=== PATIENT | female | born 1975 | race Caucasian/White ===

== ENCOUNTER 2016-03-13 12:10 | Emergency (ER) | payer BC, OTHER ==
[2016-03-13] MEDS ORDERED: BABY ASPIRIN 81 MG CHEW PO ONE (12:46)
[2016-03-13] MEDS ORDERED: BABY ASPIRIN 81 MG CHEW ONE (12:50)
--- NOTE | 2016-03-13 12:54 | ERPHSYRPT ---
- History of Present Illness Time Seen by Provider: 03/13/16 12:49 Exam Limitations: no limitations Patient Subjective Stated Complaint: PT STATES TODAY WHIILE AT WORK SHE BEGAN HAVING CHEST PAIN. PT STATES FOR THE PAST FEW DAYS SHE HAS FELT "SHAKY" AND HAS HAD PERIODS OF DIZZINESS. Triage Nursing Assessment: PT PINK, WARM, DRY. RADIAL PULSES STRONG. PT AMBULATED INTO ER WITHOUT DIFFICULTY. Physician History: This is a 40-year-old white female with history of COPD, emphysema, She arrives with complaint of pain in her anterior chest initially starting out as a stabbing pain and then becoming a pressure like pain which began around 10: 00 associated with shortness of breath she denies nausea no vomiting. She does state that 2 days ago she passed out 2 times. She states that she did not seek medical attention after doing this. Patient states her pain now as a 4 out of 10 it is much better than before she states it was 8 out of 10. She denies any history of cardiac problems past medical history includes COPD emphysema, tubal ligation, patient has had a ganglion cyst removed. Social history is positive for marijuana use occasional and smokes. . Timing/Duration: today (10:00 today) Activities at Onset: other (work) Quality: other (initially sharp stabbing progressed to pressure) Location: substernal Chest Pain Radiation: no radiation Severity of Pain-Max: moderate Severity of Pain-Current: mild Modifying Factors: Improves With: nothing Associated Symptoms: syncope (syncope 2 days ago 2), dizziness, No nausea, No vomiting, No palpitations, No heartburn, No abdominal pain, No shortness of breath, No cough, No hurts to breathe, No diaphoresis, No fever, No fatigue, No weakness, No swelling/lump in chest, No rash, No headache Prior Chest Pain/Cardiac Workup: no prior chest pain Nitro Today/Relief: no nitro taken today Aspirin Treatment Today: 81 mg x 4, provided by ED Allergies/Adverse Reactions: No Known Drug Allergies Allergy (Unverified 03/13/16 12:23) Home Medications: Albuterol 2.5 mg/3 ml Neb [Proventil 2.5 mg/3 ml Neb] 2.5 mg IH Q6HPRN PRN 03/13/16 [History] Hx Tetanus, Diphtheria Vaccination/Date Given: Yes (UP TO DATE) Hx Influenza Vaccination/Date Given: Yes Hx Pneumococcal Vaccination/Date Given: No Immunizations Up to Date: Yes - Review of Systems Constitutional: No Fever, No Chills Eyes: No Symptoms Ears, Nose, & Throat: No Symptoms Respiratory: Dyspnea, No Cough, No Cyanosis, No Dyspnea on Exertion (GRIFFIN), No Wheezing Cardiac: Chest Pain, Syncope (syncope 2 days ago 2), No Edema, No Palpitations Abdominal/Gastrointestinal: No Abdominal Pain, No Nausea, No Vomiting, No Diarrhea Genitourinary Symptoms: No Dysuria Musculoskeletal: No Back Pain, No Neck Pain Skin: No Rash Neurological: Dizziness, Other (syncope 2 days ago 2), No Focal Weakness, No Sensory Changes Psychological: No Symptoms Endocrine: No Symptoms - Past Medical History Pertinent Past Medical History: Yes Respiratory History: COPD - Past Surgical History Past Surgical History: Yes Female Surgical History: Tubal Ligation, Other Other Surgical History: LYMPH NODE BIOPSY. GANGLION CYST REMOVAL. - Social History Smoking Status: Current every day smoker How long have you smoked: 25 Exposure to second hand smoke: Yes Drug Use: marijuana Patient Lives Alone: No - Female History Hx Last Menstrual Period: END JAN 2016 - Nursing Vital Signs Temperature: 98.4 F Temperature Source: Oral Pulse Rate: 99 Respiratory Rate: 18 Blood Pressure: 125/83 Pain Intensity: 4 - Physical Exam General Appearance: no apparent distress, alert Eye Exam: PERRL/EOMI, eyes nml inspection Ears, Nose, Throat Exam: normal ENT inspection, moist mucous membranes Neck Exam: normal inspection, non-tender, supple, full range of motion Respiratory Exam: normal breath sounds, lungs clear, No respiratory distress Cardiovascular Exam: regular rate/rhythm, normal heart sounds Gastrointestinal/Abdomen Exam: soft, No tenderness, No mass Back Exam: normal inspection, No CVA tenderness, No vertebral tenderness Extremity Exam: normal inspection, normal range of motion Neurologic Exam: alert, oriented x 3, cooperative, normal mood/affect, sensation nml, No motor deficits SpO2 Interpretation: normal (100%) SpO2: 100 Oxygen Delivery: Room Air - Course Nursing assessment & vital signs reviewed: Yes EKG Interpreted by Me: RATE (95 bpm), NORMAL AXIS, Other (EKG sinus rhythm, 95 bpm, normal axis, no acute ST or T wave changes noted) - Radiology Exams Chest X-ray Interpretation: Discussed w/ radiologist, Other (stable non acute hyperinflted chest) Ordered Tests: Active Orders 24 hr Category Date Time Status Log Chain Worker STAT Care 03/13/16 12:24 Active EKG-ER Only STAT Care 03/13/16 12:24 Active EKG-ER Only STAT Care 03/13/16 15:31 Active IV Insertion STAT Care 03/13/16 12:24 Active Orthostatic Vital Signs STAT Care 03/13/16 12:28 Active Pulse Oximetry (ED) STAT Care 03/13/16 12:24 Active Cardiac Diet Diet 03/13/16 Dinner Active CHEST 1 VIEW (PORTABLE) Stat Exams 03/13/16 12:46 Completed CBC W DIFF Stat Lab 03/13/16 12:30 Completed CMP Stat Lab 03/13/16 12:30 Completed D-DIMER QUANTITATION Stat Lab 03/13/16 12:30 Completed HCG QUALITATIVE,SERUM Stat Lab 03/13/16 12:30 Completed Manual Differential NC Stat Lab 03/13/16 12:30 Completed TROPONIN Q3H Lab 03/13/16 13:20 Completed TROPONIN Q3H Lab 03/13/16 15:46 Completed TROPONIN Q3H Lab 03/13/16 19:00 Ordered TROPONIN Q3H Lab 03/13/16 22:00 Ordered TROPONIN Q3H Lab 03/14/16 01:00 Ordered Urine Triage Profile Stat Lab 03/13/16 12:30 Completed Medication Summary Discontinued Medications Generic Name Dose Route Start Last Admin Trade Name Freq PRN Reason Stop Dose Admin Aspirin 324 mg 03/13/16 12:46 03/13/16 12:55 Baby Aspirin 81 Mg Chew PO 03/13/16 12:47 324 mg STAT ONE Administration Aspirin Confirm 03/13/16 12:50 Baby Aspirin 81 Mg Chew Administered 03/13/16 12:51 Dose 324 mg .ROUTE .STK-MED ONE Lab/Rad Data: Laboratory Result Diagrams 03/13/16 12:30 03/13/16 12:30 Laboratory Results 03/13/16 03/13/16 03/13/16 Range/Units 15:46 13:20 12:30 WBC (4.0-10.5) K/mm3 RBC (4.1-5.4) M/mm3 Hgb (12.0-16.0) gm/dl Hct (35-47) % MCV (78-100) fl MCH (26-32) pg MCHC (32-36) g/dl RDW (11.5-14.0) % Plt Count (150-450) K/mm3 MPV (6-9.5) fl Segmented Neutrophils (36.0-66.0) % Band Neutrophils (0.0-2.0) % Lymphocytes (Manual) (24-44) % Monocytes (Manual) (0.0-12.0) % Platelet Estimate (NORMAL) D-Dimer (0.00-0.49) mg/L Sodium (136-145) mEq/L Potassium (3.5-5.1) mEq/L Chloride (98-107) mEq/L Carbon Dioxide (21-32) mEq/L Anion Gap (5-15) MEQ/L BUN (9-20) mg/dL Creatinine (0.55-1.30) mg/dl Estimated GFR ML/MIN Glucose (70-110) MG/DL Calcium (8.5-10.1) mg/dL Total Bilirubin (0.2-1.0) mg/dL AST (15-37) U/L ALT (12-78) U/L Alkaline Phosphatase (46-116) U/L Troponin I < 0.017 < 0.017 (0.000-0.056) ng/ml Serum Total Protein (6.4-8.2) gm/dL Albumin (3.4-5.0) g/dL Serum , Qual NEGATIVE (Negative) Urine Opiates Level (NEGATIVE) Ur Methadone (NEGATIVE) Urine Barbiturates (NEGATIVE) Ur Phencyclidine (PCP) (NEGATIVE) Urine Amphetamine (NEGATIVE) U Benzodiazepine Level (NEGATIVE) Urine Cocaine (NEGATIVE) Urine Marijuana (THC) (NEGATIVE) 03/13/16 03/13/16 03/13/16 Range/Units 12:30 12:30 12:30 WBC (4.0-10.5) K/mm3 RBC (4.1-5.4) M/mm3 Hgb (12.0-16.0) gm/dl Hct (35-47) % MCV (78-100) fl MCH (26-32) pg MCHC (32-36) g/dl RDW (11.5-14.0) % Plt Count (150-450) K/mm3 MPV (6-9.5) fl Segmented Neutrophils (36.0-66.0) % Band Neutrophils (0.0-2.0) % Lymphocytes (Manual) (24-44) % Monocytes (Manual) (0.0-12.0) % Platelet Estimate (NORMAL) D-Dimer < 0.20 (0.00-0.49) mg/L Sodium 142 (136-145) mEq/L Potassium 3.6 (3.5-5.1) mEq/L Chloride 105 (98-107) mEq/L Carbon Dioxide 25.8 (21-32) mEq/L Anion Gap 15.2 H (5-15) MEQ/L BUN 6 L (9-20) mg/dL Creatinine 0.86 (0.55-1.30) mg/dl Estimated GFR > 60 ML/MIN Glucose 94 (70-110) MG/DL Calcium 8.4 L (8.5-10.1) mg/dL Total Bilirubin 0.2 (0.2-1.0) mg/dL AST 16 (15-37) U/L ALT 14 (12-78) U/L Alkaline Phosphatase 48 (46-116) U/L Troponin I (0.000-0.056) ng/ml Serum Total Protein 7.0 (6.4-8.2) gm/dL Albumin 3.9 (3.4-5.0) g/dL Serum , Qual (Negative) Urine Opiates Level NEG. (NEGATIVE) Ur Methadone NEG. (NEGATIVE) Urine Barbiturates NEG. (NEGATIVE) Ur Phencyclidine (PCP) NEG. (NEGATIVE) Urine Amphetamine NEG. (NEGATIVE) U Benzodiazepine Level NEG. (NEGATIVE) Urine Cocaine NEG. (NEGATIVE) Urine Marijuana (THC) POS. (NEGATIVE) 03/13/16 Range/Units 12:30 WBC 9.6 (4.0-10.5) K/mm3 RBC 4.37 (4.1-5.4) M/mm3 Hgb 13.8 (12.0-16.0) gm/dl Hct 41.9 (35-47) % MCV 95.9 (78-100) fl MCH 31.6 (26-32) pg MCHC 32.9 (32-36) g/dl RDW 13.0 (11.5-14.0) % Plt Count 330 (150-450) K/mm3 MPV 11.3 H (6-9.5) fl Segmented Neutrophils 76 H (36.0-66.0) % Band Neutrophils 1 (0.0-2.0) % Lymphocytes (Manual) 18 L (24-44) % Monocytes (Manual) 5 (0.0-12.0) % Platelet Estimate NORMAL (NORMAL) D-Dimer (0.00-0.49) mg/L Sodium (136-145) mEq/L Potassium (3.5-5.1) mEq/L Chloride (98-107) mEq/L Carbon Dioxide (21-32) mEq/L Anion Gap (5-15) MEQ/L BUN (9-20) mg/dL Creatinine (0.55-1.30) mg/dl Estimated GFR ML/MIN Glucose (70-110) MG/DL Calcium (8.5-10.1) mg/dL Total Bilirubin (0.2-1.0) mg/dL AST (15-37) U/L ALT (12-78) U/L Alkaline Phosphatase (46-116) U/L Troponin I (0.000-0.056) ng/ml Serum Total Protein (6.4-8.2) gm/dL Albumin (3.4-5.0) g/dL Serum , Qual (Negative) Urine Opiates Level (NEGATIVE) Ur Methadone (NEGATIVE) Urine Barbiturates (NEGATIVE) Ur Phencyclidine (PCP) (NEGATIVE) Urine Amphetamine (NEGATIVE) U Benzodiazepine Level (NEGATIVE) Urine Cocaine (NEGATIVE) Urine Marijuana (THC) (NEGATIVE) - Progress Progress: improved Air Movement: fair Progress Note: 03/13/16 15:40 Patient in no acute distress. Initial troponin normal. Awaiting repeat troponin. Repeat EKG sinus rhythm 64 bpm normal axis no acute ST or T wave changes noted. 03/13/16 16:27 Patient pain free. Repeat troponin within normal limits. EKG repeat normal. Will discharge patient. Patient follow-up with her family doctor she states she plans to follow-up with Dr. Redd. 03/13/16 16:30 After the first troponin was available I had offered either to talk to physician oncology radiation physician for possible admission for rule out. Versus repeat cardiac enzymes. Patient did not want to be admitted and chose to stay for repeat cardiac enzymes. She did not have any problems in between enzymes she is pain free repeat enzymes and EKGs are normal. - Departure Time of Disposition: 16:28 Departure Disposition: Home Clinical Impression: Chest pain Qualifiers: Chest pain type: unspecified Qualified Code(s): R07.9 - Chest pain, unspecified Condition: Fair Critical Care Time: No Referrals: DOCTOR,NO FAMILY [Primary Care Provider] - Additional Instructions: Return home rest, plenty of fluids. Follow-up with your family doctor, call and make an appointment. Return for acute distress or for severe symptoms.
[2016-03-13 13:01] LABS: Mean Cell Volume 95.9 fl (78-100); Mean Corpuscular Hemoglobin 31.6 pg (26-32); Mean Platelet Volume 11.3 fl (6-9.5); Platelet Count 330 K/mm3 (150-450); Red Blood Count 4.37 M/mm3 (4.1-5.4); White Blood Count 9.6 K/mm3 (4.0-10.5)
--- NOTE | 2016-03-13 13:11 | XRAY ---
Indication: Chest pain Comparison: July 15, 2013 Portable chest remains hyperinflated and clear. Heart is not enlarged. Bony thorax intact. No new/acute findings. Impression: Stable nonacute hyperinflated chest.
[2016-03-13 13:26] LABS: ALBUMIN 3.9 g/dL (3.4-5.0); ALKALINE PHOSPHATASE 48 U/L (46-116); ANION GAP 15.2 MEQ/L (5-15); BILIRUBIN,TOTAL 0.2 mg/dL (0.2-1.0); BLOOD UREA NITROGEN 6 mg/dL (9-20); CHLORIDE 105 mEq/L (98-107); Carbon Dioxide 25.8 mEq/L (21-32); Glucose 94 MG/DL (70-110); Potassium 3.6 mEq/L (3.5-5.1); SGOT/AST 16 U/L (15-37); SGPT/ALT 14 U/L (12-78); SODIUM 142 mEq/L (136-145)
[2016-03-13 13:40] LABS: BAND 1 % (0.0-2.0); Total Cells Counted 100
[2016-03-13 13:42] LABS: Platelet Estimate NORMAL (NORMAL)
[2016-03-13 16:43] VITALS: BP 110/62; PULSE 66; O2SAT 97
== END 2016-03-13 16:43 | disposition home or self-care (01) ==
LOC: ED 12:10
DX: R07.89 Other chest pain (principal); J44.9 Chronic obstructive pulmonary disease, unspecified; J43.9 Emphysema, unspecified; R55 Syncope and collapse; R42 Dizziness and giddiness
CPT/HCPCS: 36000; 36415; 71010; 80053; 80307; 84484; 84703; 85025; 85379; 93005; 93041; 96360; 99284

== ENCOUNTER 2017-05-27 23:00 | Observation (INO) | payer OTHER ==
[2017-05-27] MEDS ORDERED: Sodium Chloride 0.9% 1000 ML 1,000 ML IV SCH (23:15)
[2017-05-27] MEDS ORDERED: Sodium Chloride 0.9% 1000 ML 1,000 ML ONE (23:19)
[2017-05-27 23:20] LABS: BASOPHIL % 0.6 % (0.0-0.4); Basophil (Absolute #) 0.05 (0-0.4); Eosinophil % 2.8 % (0.00-5.0); Eosinophil (Absolute #) 0.24 (0-0.5); Granulocyte Absolute (ANC) 4.77 (1.4-6.9); Hematocrit 41.4 % (35-47); Hemoglobin 13.7 gm/dl (12.0-16.0); Lymphocytes % 34.1 % (24.0-44.0); Mean Corpuscular Hemoglobin 31.4 pg (26-32); Mean Corpuscular Hgb Concent. 33.1 g/dl (32-36); Mean Platelet Volume 10.6 fl (6-9.5); Monocyte (Absolute #) 0.55 (0.0-1.3); Monocytes % 6.5 % (0.0-12.0); Platelet Count 310 K/mm3 (150-450); Red Blood Count 4.36 M/mm3 (4.1-5.4); Red Cell Distribution Width 12.8 % (11.5-14.0); White Blood Count 8.5 K/mm3 (4.0-10.5)
[2017-05-27 23:27] LABS: A-aADO2 40; ABG HEMOGLOBIN 13.5; ABG POTASSIUM 3.9 (3.5-5.1); ARTERIAL BLD GAS O2 SATURATION 98.6 % (95-100); ARTERIAL BLOOD GAS BASE EXCESS -1.1 (-2.0-2.0); ARTERIAL BLOOD GAS FIO2 28 %; ARTERIAL BLOOD GAS PCO2 53 mmHg (35-45); ARTERIAL BLOOD GAS PO2 93 mmHg (75-100); HCO3- 26.1 (22-28); HGB O2 SAT 90.7 g/dF (94-100)
[2017-05-27 23:28] LABS: ABG SITE RIGHT RADIAL; ALLEN TEST OK? YES
[2017-05-27] MEDS ORDERED: PROVENTIL 2.5 MG/3 ML NEB IH ONE ×2 (23:36→23:42)
--- NOTE | 2017-05-27 23:36 | ERPHSYRPT ---
- History of Present Illness Time Seen by Provider: 05/27/17 23:05 Source: family () Exam Limitations: no limitations Physician History: REPORTEDLY PT AND HER WENT OUT FOR DRINKS, CAME HOME AND WENT TO BED ~ 2200. PT'S STATES HE GOT UP AND FOUND PT ON FLOOR AND NOTICED PILLS WERE GONE FROM HER XANAX AND LEXAPRO BOTTLES. PT IS DROUSY AND WILL NOT ANSWER MY QUESTIONS. Allergies/Adverse Reactions: No Known Drug Allergies Allergy (Unverified 03/13/16 12:23) Home Medications: Albuterol 2.5 mg/3 ml Neb [Proventil 2.5 mg/3 ml Neb] 2.5 mg IH Q6HPRN PRN 03/13/16 [History] Hx Tetanus, Diphtheria Vaccination/Date Given: Yes (UP TO DATE) Hx Influenza Vaccination/Date Given: Yes Hx Pneumococcal Vaccination/Date Given: No - Review of Systems All Other Systems: Unable due to condition (PT WILL NOT ANSWER MY QUESTIONS.) - Past Medical History Pertinent Past Medical History: Yes Respiratory History: COPD - Past Surgical History Past Surgical History: Yes Female Surgical History: Tubal Ligation, Other Other Surgical History: LYMPH NODE BIOPSY. GANGLION CYST REMOVAL. - Social History Smoking Status: Current every day smoker How long have you smoked: 25 Exposure to second hand smoke: Yes Drug Use: marijuana Patient Lives Alone: No - Female History Hx Now: (UNKNOWN) - Nursing Vital Signs Nursing Vital Signs: Initial Vital Signs Temperature 97.7 F 05/27/17 23:02 Pulse Rate 83 05/27/17 23:02 Blood Pressure 101/65 05/27/17 23:02 O2 Sat by Pulse Oximetry 100 05/27/17 23:02 Pain Scale Pain Intensity 0 - Physical Exam General Appearance: lethargy Eye Exam: PERRL/EOMI Ears, Nose, Throat Exam: TMs normal, moist mucous membranes, pharyngeal erythema (MILD) Neck Exam: normal inspection Respiratory Exam: wheezing (MINIMAL) Cardiovascular Exam: normal heart sounds Gastrointestinal/Abdomen Exam: soft, other (B.S. MODERATELY HYPERACTIVE AND NORMOTONIC), No distention Back Exam: normal inspection Extremity Exam: normal inspection, No pedal edema Neurologic Exam: other (LETHARGIC) SpO2 Interpretation: normal SpO2: 98 Oxygen Delivery: Room Air - Course Nursing assessment & vital signs reviewed: Yes EKG Interpreted by Me: RATE (82), Sinus Rhythm, NORMAL AXIS, NORMAL INTERVALS - Radiology Exams Chest X-ray Interpretation: Interpreted by me, No Pneumonia - CT Exams Head CT Interpretation: Tele-radiologist Report (NEGATIVE FOR INTRACRANIAL HEMORRHAGE OR MASS EFFECT.) Ordered Tests: Active Orders 24 hr Category Date Time Status Whiskey Regauger STAT Care 05/27/17 23:11 Active Cath for Specimen-Straight STAT Care 05/27/17 23:52 Active EKG-ER Only STAT Care 05/27/17 23:11 Active IV Insertion STAT Care 05/27/17 23:11 Active IV Insertion-2nd Peripheral STAT Care 05/27/17 23:16 Active Oxygen-ED Only NASAL CANNULA 2 lpm Care 05/27/17 23:11 Active Pulse Oximetry (ED) STAT Care 05/27/17 23:11 Active CHEST 1 VIEW (PORTABLE) Stat Exams 05/27/17 23:13 Taken HEAD WITHOUT CONTRAST [CT] Stat Exams 05/27/17 23:14 Taken ACETAMINOPHEN Stat Lab 05/27/17 23:15 Completed AMYLASE Stat Lab 05/27/17 23:15 Completed ARTERIAL BLOOD GASES Stat Lab 05/27/17 23:20 Completed ARTERIAL BLOOD GASES Stat Lab 05/28/17 01:13 Completed CBC W DIFF Stat Lab 05/27/17 23:15 Completed CMP Stat Lab 05/27/17 23:15 Completed CULTURE, THROAT Stat Lab 05/27/17 23:45 Received ETHYL ALCOHOL Stat Lab 05/27/17 23:15 Completed HCG QUALITATIVE,SERUM Stat Lab 05/27/17 23:15 Completed LIPASE Stat Lab 05/27/17 23:15 Completed MAGNESIUM Stat Lab 05/27/17 23:15 Completed SALICYLATE Stat Lab 05/27/17 23:15 Completed STREP SCREEN-BETA A Stat Lab 05/27/17 23:45 Completed TROPONIN Q3H Lab 05/27/17 23:15 Completed TROPONIN Q3H Lab 05/28/17 02:15 Ordered TROPONIN Q3H Lab 05/28/17 05:15 Ordered TROPONIN Q3H Lab 05/28/17 08:15 Ordered TROPONIN Q3H Lab 05/28/17 11:15 Ordered UA W/RFX UR CULTURE Stat Lab 05/27/17 23:45 Completed Urine Triage Profile Stat Lab 05/27/17 23:45 Completed BiPap/CPAP Assessment STAT RT 05/28/17 00:06 Active Respiratory Nebulizer STAT RT 05/27/17 23:37 Active Medication Summary Generic Name Dose Route Start Last Admin Trade Name Bryantq PRN Reason Stop Dose Admin Sodium Chloride 1,000 mls @ 100 mls/hr 05/27/17 23:15 05/27/17 23:20 Sodium Chloride 0.9% 1000 Ml IV 06/26/17 23:14 100 mls/hr .Q10H SOPHIA Administration Discontinued Medications Generic Name Dose Route Start Last Admin Trade Name Fabrizio PRN Reason Stop Dose Admin Albuterol Sulfate 2.5 mg 05/27/17 23:36 05/27/17 23:40 Proventil 2.5 Mg/3 Ml Neb IH 05/27/17 23:37 2.5 mg STAT ONE Administration Albuterol Sulfate Confirm 05/27/17 23:42 Proventil 2.5 Mg/3 Ml Neb Administered 05/27/17 23:43 Dose 2.5 mg IH .STK-MED ONE Flumazenil 0.2 mg 05/27/17 23:50 05/27/17 23:54 Romazicon 0.5 Mg/5 Ml Injection IV 05/27/17 23:51 0.2 mg STAT ONE Administration Flumazenil Confirm 05/27/17 23:53 Romazicon 0.5 Mg/5 Ml Injection Administered 05/27/17 23:54 Dose 0.1 mg .ROUTE .STK-MED ONE Lab/Rad Data: Laboratory Result Diagrams 05/27/17 23:15 05/27/17 23:15 Laboratory Results 05/28/17 05/27/17 05/27/17 Range/Units 01:13 Unknown 23:45 WBC (4.0-10.5) K/mm3 RBC (4.1-5.4) M/mm3 Hgb (12.0-16.0) gm/dl Hct (35-47) % MCV (78-100) fl MCH (26-32) pg MCHC (32-36) g/dl RDW (11.5-14.0) % Plt Count (150-450) K/mm3 MPV (6-9.5) fl Gran % (36.0-66.0) % Eos # (Auto) (0-0.5) Absolute Lymphs (auto) (1.0-4.6) Absolute Monos (auto) (0.0-1.3) Lymphocytes % (24.0-44.0) % Monocytes % (0.0-12.0) % Eosinophils % (0.00-5.0) % Basophils % (0.0-0.4) % Absolute Granulocytes (1.4-6.9) Basophils # (0-0.4) Puncture Site RIGHT RADIAL pCO2 52 H (35-45) mmHg pO2 61 L (75-100) mmHg Base Excess -1.4 (-2.0-2.0) O2 Saturation 87.0 L (94-100) g/dF ABG pH 7.30 L (7.35-7.45) ABG HCO3 25.6 (22-28) ABG O2 Sat (Measured) 92.8 L (95-100) % Michael Test YES A-a Gradient 74 a/A Ratio 0.45 Hemoglobin 12.2 Carboxyhemoglobin 5.6 (0.0-6.9) % THgb Methemoglobin 0.7 L (1.4-1.5) % Temperature 37.0 C POC O2 Flow Rate 28 % Sodium (137-145) mmol/L Potassium 4.1 (3.5-5.1) mmol/L Chloride (98-107) mmol/L Carbon Dioxide (22-30) mmol/L Anion Gap (5-15) MEQ/L BUN (7-17) mg/dL Creatinine (0.52-1.04) mg/dL Estimated GFR ML/MIN Glucose (74-106) mg/dL Calcium (8.4-10.2) mg/dL Magnesium (1.6-2.3) mg/dL Total Bilirubin (0.2-1.3) mg/dL AST (14-36) U/L ALT (0-35) U/L Alkaline Phosphatase (38-126) U/L Troponin I (0.000-0.034) ng/mL Serum Total Protein (6.3-8.2) g/dL Albumin (3.5-5.0) g/dL Amylase (30-110) U/L Lipase (23-300) U/L Serum , Qual (Negative) Ur Collection Type Urine Color (YELLOW) Urine Appearance (CLEAR) Urine pH (5-6) Ur Specific Mallie (1.005-1.025) Urine Protein (Negative) Urine Ketones (NEGATIVE) Urine Blood (0-5) Kendall/ul Urine Nitrite (NEGATIVE) Urine Bilirubin (NEGATIVE) Urine Urobilinogen (0-1) mg/dL Ur Leukocyte Esterase (NEGATIVE) Urine Culture Reflexed (NO) Urine Glucose (NEGATIVE) mg/dL Salicylates (2-20) mg/dL Urine Opiates Level (NEGATIVE) Ur Methadone (NEGATIVE) Acetaminophen (10-30) ug/ml Urine Barbiturates (NEGATIVE) Ur Phencyclidine (PCP) (NEGATIVE) Urine Amphetamine (NEGATIVE) U Benzodiazepine Level (NEGATIVE) Urine Cocaine (NEGATIVE) Urine Marijuana (THC) (NEGATIVE) Ethyl Alcohol (0-9) mg/dL Monoscreen NEGATIVE (Negative) Influenza Type A Ag NEGATIVE (NEGATIVE) Influenza Type B Ag NEGATIVE (NEGATIVE) RSV (PCR) NEGATIVE (Negative) Streptococcus Screen (Negative) Specimen Received 05/27/17 05/27/17 05/27/17 Range/Units 23:45 23:45 23:45 WBC (4.0-10.5) K/mm3 RBC (4.1-5.4) M/mm3 Hgb (12.0-16.0) gm/dl Hct (35-47) % MCV (78-100) fl MCH (26-32) pg MCHC (32-36) g/dl RDW (11.5-14.0) % Plt Count (150-450) K/mm3 MPV (6-9.5) fl Gran % (36.0-66.0) % Eos # (Auto) (0-0.5) Absolute Lymphs (auto) (1.0-4.6) Absolute Monos (auto) (0.0-1.3) Lymphocytes % (24.0-44.0) % Monocytes % (0.0-12.0) % Eosinophils % (0.00-5.0) % Basophils % (0.0-0.4) % Absolute Granulocytes (1.4-6.9) Basophils # (0-0.4) Puncture Site pCO2 (35-45) mmHg pO2 (75-100) mmHg Base Excess (-2.0-2.0) O2 Saturation (94-100) g/dF ABG pH (7.35-7.45) ABG HCO3 (22-28) ABG O2 Sat (Measured) (95-100) % Michael Test A-a Gradient a/A Ratio Hemoglobin Carboxyhemoglobin (0.0-6.9) % THgb Methemoglobin (1.4-1.5) % Temperature C POC O2 Flow Rate % Sodium (137-145) mmol/L Potassium (3.5-5.1) mmol/L Chloride (98-107) mmol/L Carbon Dioxide (22-30) mmol/L Anion Gap (5-15) MEQ/L BUN (7-17) mg/dL Creatinine (0.52-1.04) mg/dL Estimated GFR ML/MIN Glucose (74-106) mg/dL Calcium (8.4-10.2) mg/dL Magnesium (1.6-2.3) mg/dL Total Bilirubin (0.2-1.3) mg/dL AST (14-36) U/L ALT (0-35) U/L Alkaline Phosphatase (38-126) U/L Troponin I (0.000-0.034) ng/mL Serum Total Protein (6.3-8.2) g/dL Albumin (3.5-5.0) g/dL Amylase (30-110) U/L Lipase (23-300) U/L Serum , Qual (Negative) Ur Collection Type CATH Urine Color YELLOW (YELLOW) Urine Appearance CLEAR (CLEAR) Urine pH 5.0 (5-6) Ur Specific Mallie 1.030 (1.005-1.025) Urine Protein NEGATIVE (Negative) Urine Ketones NEGATIVE (NEGATIVE) Urine Blood NEGATIVE (0-5) Kendall/ul Urine Nitrite NEGATIVE (NEGATIVE) Urine Bilirubin NEGATIVE (NEGATIVE) Urine Urobilinogen NORMAL (0-1) mg/dL Ur Leukocyte Esterase NEGATIVE (NEGATIVE) Urine Culture Reflexed NO (NO) Urine Glucose NEGATIVE (NEGATIVE) mg/dL Salicylates (2-20) mg/dL Urine Opiates Level NEGATIVE (NEGATIVE) Ur Methadone NEGATIVE (NEGATIVE) Acetaminophen (10-30) ug/ml Urine Barbiturates NEGATIVE (NEGATIVE) Ur Phencyclidine (PCP) NEGATIVE (NEGATIVE) Urine Amphetamine NEGATIVE (NEGATIVE) U Benzodiazepine Level POSITIVE (NEGATIVE) Urine Cocaine NEGATIVE (NEGATIVE) Urine Marijuana (THC) NEGATIVE (NEGATIVE) Ethyl Alcohol (0-9) mg/dL Monoscreen (Negative) Influenza Type A Ag (NEGATIVE) Influenza Type B Ag (NEGATIVE) RSV (PCR) (Negative) Streptococcus Screen NEGATIVE (Negative) Specimen Received 05/27/17 0789 05/27/17 05/27/17 05/27/17 Range/Units 23:20 23:15 23:15 WBC (4.0-10.5) K/mm3 RBC (4.1-5.4) M/mm3 Hgb (12.0-16.0) gm/dl Hct (35-47) % MCV (78-100) fl MCH (26-32) pg MCHC (32-36) g/dl RDW (11.5-14.0) % Plt Count (150-450) K/mm3 MPV (6-9.5) fl Gran % (36.0-66.0) % Eos # (Auto) (0-0.5) Absolute Lymphs (auto) (1.0-4.6) Absolute Monos (auto) (0.0-1.3) Lymphocytes % (24.0-44.0) % Monocytes % (0.0-12.0) % Eosinophils % (0.00-5.0) % Basophils % (0.0-0.4) % Absolute Granulocytes (1.4-6.9) Basophils # (0-0.4) Puncture Site RIGHT RADIAL pCO2 53 H (35-45) mmHg pO2 93 (75-100) mmHg Base Excess -1.1 (-2.0-2.0) O2 Saturation 90.7 L (94-100) g/dF ABG pH 7.30 L (7.35-7.45) ABG HCO3 26.1 (22-28) ABG O2 Sat (Measured) 98.6 (95-100) % Michael Test YES A-a Gradient 40 a/A Ratio 0.70 Hemoglobin 13.5 Carboxyhemoglobin 7.0 H* (0.0-6.9) % THgb Methemoglobin 1.0 L (1.4-1.5) % Temperature 37.0 C POC O2 Flow Rate 28 % Sodium (137-145) mmol/L Potassium 3.9 (3.5-5.1) mmol/L Chloride (98-107) mmol/L Carbon Dioxide (22-30) mmol/L Anion Gap (5-15) MEQ/L BUN (7-17) mg/dL Creatinine (0.52-1.04) mg/dL Estimated GFR ML/MIN Glucose (74-106) mg/dL Calcium (8.4-10.2) mg/dL Magnesium (1.6-2.3) mg/dL Total Bilirubin (0.2-1.3) mg/dL AST (14-36) U/L ALT (0-35) U/L Alkaline Phosphatase (38-126) U/L Troponin I < 0.012 (0.000-0.034) ng/mL Serum Total Protein (6.3-8.2) g/dL Albumin (3.5-5.0) g/dL Amylase (30-110) U/L Lipase (23-300) U/L Serum , Qual NEGATIVE (Negative) Ur Collection Type Urine Color (YELLOW) Urine Appearance (CLEAR) Urine pH (5-6) Ur Specific Mallie (1.005-1.025) Urine Protein (Negative) Urine Ketones (NEGATIVE) Urine Blood (0-5) Kendall/ul Urine Nitrite (NEGATIVE) Urine Bilirubin (NEGATIVE) Urine Urobilinogen (0-1) mg/dL Ur Leukocyte Esterase (NEGATIVE) Urine Culture Reflexed (NO) Urine Glucose (NEGATIVE) mg/dL Salicylates (2-20) mg/dL Urine Opiates Level (NEGATIVE) Ur Methadone (NEGATIVE) Acetaminophen (10-30) ug/ml Urine Barbiturates (NEGATIVE) Ur Phencyclidine (PCP) (NEGATIVE) Urine Amphetamine (NEGATIVE) U Benzodiazepine Level (NEGATIVE) Urine Cocaine (NEGATIVE) Urine Marijuana (THC) (NEGATIVE) Ethyl Alcohol (0-9) mg/dL Monoscreen (Negative) Influenza Type A Ag (NEGATIVE) Influenza Type B Ag (NEGATIVE) RSV (PCR) (Negative) Streptococcus Screen (Negative) Specimen Received 05/27/17 05/27/17 05/27/17 Range/Units 23:15 23:15 23:15 WBC 8.5 (4.0-10.5) K/mm3 RBC 4.36 (4.1-5.4) M/mm3 Hgb 13.7 (12.0-16.0) gm/dl Hct 41.4 (35-47) % MCV 95.0 (78-100) fl MCH 31.4 (26-32) pg MCHC 33.1 (32-36) g/dl RDW 12.8 (11.5-14.0) % Plt Count 310 (150-450) K/mm3 MPV 10.6 H (6-9.5) fl Gran % 56.0 (36.0-66.0) % Eos # (Auto) 0.24 (0-0.5) Absolute Lymphs (auto) 2.90 (1.0-4.6) Absolute Monos (auto) 0.55 (0.0-1.3) Lymphocytes % 34.1 (24.0-44.0) % Monocytes % 6.5 (0.0-12.0) % Eosinophils % 2.8 (0.00-5.0) % Basophils % 0.6 (0.0-0.4) % Absolute Granulocytes 4.77 (1.4-6.9) Basophils # 0.05 (0-0.4) Puncture Site pCO2 (35-45) mmHg pO2 (75-100) mmHg Base Excess (-2.0-2.0) O2 Saturation (94-100) g/dF ABG pH (7.35-7.45) ABG HCO3 (22-28) ABG O2 Sat (Measured) (95-100) % Michael Test A-a Gradient a/A Ratio Hemoglobin Carboxyhemoglobin (0.0-6.9) % THgb Methemoglobin (1.4-1.5) % Temperature C POC O2 Flow Rate % Sodium 144 (137-145) mmol/L Potassium 3.9 (3.5-5.1) mmol/L Chloride 107 (98-107) mmol/L Carbon Dioxide 25 (22-30) mmol/L Anion Gap 15.2 H (5-15) MEQ/L BUN 10 (7-17) mg/dL Creatinine 0.75 (0.52-1.04) mg/dL Estimated GFR > 60 ML/MIN Glucose 94 (74-106) mg/dL Calcium 8.8 (8.4-10.2) mg/dL Magnesium 1.9 (1.6-2.3) mg/dL Total Bilirubin < 0.10 L (0.2-1.3) mg/dL AST 24 (14-36) U/L ALT 23 (0-35) U/L Alkaline Phosphatase 42 (38-126) U/L Troponin I (0.000-0.034) ng/mL Serum Total Protein 6.8 (6.3-8.2) g/dL Albumin 4.1 (3.5-5.0) g/dL Amylase 92 (30-110) U/L Lipase 249 (23-300) U/L Serum , Qual (Negative) Ur Collection Type Urine Color (YELLOW) Urine Appearance (CLEAR) Urine pH (5-6) Ur Specific Mallie (1.005-1.025) Urine Protein (Negative) Urine Ketones (NEGATIVE) Urine Blood (0-5) Kendall/ul Urine Nitrite (NEGATIVE) Urine Bilirubin (NEGATIVE) Urine Urobilinogen (0-1) mg/dL Ur Leukocyte Esterase (NEGATIVE) Urine Culture Reflexed (NO) Urine Glucose (NEGATIVE) mg/dL Salicylates < 1.0 L (2-20) mg/dL Urine Opiates Level (NEGATIVE) Ur Methadone (NEGATIVE) Acetaminophen < 10 L (10-30) ug/ml Urine Barbiturates (NEGATIVE) Ur Phencyclidine (PCP) (NEGATIVE) Urine Amphetamine (NEGATIVE) U Benzodiazepine Level (NEGATIVE) Urine Cocaine (NEGATIVE) Urine Marijuana (THC) (NEGATIVE) Ethyl Alcohol 155 H (0-9) mg/dL Monoscreen (Negative) Influenza Type A Ag (NEGATIVE) Influenza Type B Ag (NEGATIVE) RSV (PCR) (Negative) Streptococcus Screen (Negative) Specimen Received - Progress Discussed with : Sue (OBS ICU - [id number]) - Departure Time of Disposition: 01:44 Departure Disposition: Observation Clinical Impression: ACUTE RESPIRATORY FAILURE, OVERDOSE, ETOH INTOXICATION, COPD Condition: Stable Critical Care Time: Yes Critical Care Time(excluding separately billable procedures): 30-74 minutes Referrals: DOCTOR,NO FAMILY [NON-STAFF PHY W/O PRIVILEGES] -
[2017-05-27 23:42] LABS: ALBUMIN 4.1 g/dL (3.5-5.0); ALKALINE PHOSPHATASE 42 U/L (38-126); ANION GAP 15.2 MEQ/L (5-15); BILIRUBIN,TOTAL < 0.10 mg/dL (0.2-1.3); BLOOD UREA NITROGEN 10 mg/dL (7-17); CHLORIDE 107 mmol/L (98-107); Calcium 8.8 mg/dL (8.4-10.2); Carbon Dioxide 25 mmol/L (22-30); Creatinine 1 0.75 mg/dL (0.52-1.04); ETHYL ALCOHOL 155 mg/dL (0-9); Glucose 94 mg/dL (74-106); Potassium 3.9 mmol/L (3.5-5.1); SGOT/AST 24 U/L (14-36); SGPT/ALT 23 U/L (0-35); SODIUM 144 mmol/L (137-145); Total Protein 6.8 g/dL (6.3-8.2)
[2017-05-27 23:44] LABS: ACETAMINOPHEN < 10 ug/ml (10-30); SALICYLATE < 1.0 mg/dL (2-20)
[2017-05-27] MEDS ORDERED: Romazicon 0.5 MG/5 ML Injection IV ONE (23:50)
[2017-05-27] MEDS ORDERED: Romazicon 0.5 MG/5 ML Injection ONE (23:53)
[2017-05-28 00:03] LABS: Appearance CLEAR (CLEAR); Bilirubin NEGATIVE (NEGATIVE); Blood NEGATIVE Ery/ul (0-5); Glucose NEGATIVE (NEGATIVE); Ketones NEGATIVE (NEGATIVE); Leukocyte Esterase NEGATIVE (NEGATIVE); Nitrite NEGATIVE (NEGATIVE); Protein,Urine Dip NEGATIVE (Negative); Urobilinogen NORMAL mg/dL (0-1)
[2017-05-28 00:12] LABS: Amphetamine,Urine NEGATIVE (NEGATIVE); Barbiturate,Urine NEGATIVE (NEGATIVE); Benzodiazepine,Urine POSITIVE (NEGATIVE); Cocaine,Urine NEGATIVE (NEGATIVE); Methadone,Urine NEGATIVE (NEGATIVE); Opiate,Urine NEGATIVE (NEGATIVE); PCP,Urine NEGATIVE (NEGATIVE); THC,Urine NEGATIVE (NEGATIVE)
[2017-05-28 00:39] LABS: INFLUENZA A NEGATIVE (NEGATIVE); INFLUENZA B NEGATIVE (NEGATIVE); RESPIRATORY SYNCTIAL VIRUS NEGATIVE (Negative)
[2017-05-28 01:16] LABS: A-aADO2 74; ABG HEMOGLOBIN 12.2; ABG POTASSIUM 4.1 (3.5-5.1); ARTERIAL BLD GAS O2 SATURATION 92.8 % (95-100); ARTERIAL BLOOD GAS BASE EXCESS -1.4 (-2.0-2.0); ARTERIAL BLOOD GAS FIO2 28 %; ARTERIAL BLOOD GAS PCO2 52 mmHg (35-45); ARTERIAL BLOOD GAS PO2 61 mmHg (75-100); CARBOXYHEMOGLOBIN 5.6 % THgb (0.0-6.9); HCO3- 25.6 (22-28); Methhemoglobin 0.7 % (1.4-1.5); paO2 pAO1 0.45
[2017-05-28 01:17] LABS: ABG SITE RIGHT RADIAL; ALLEN TEST OK? YES
[2017-05-28] MEDS ORDERED: PROVENTIL 2.5 MG/3 ML NEB IH PRN (03:02)
[2017-05-28] MEDS ORDERED: Zofran 4 MG/2 ML VIAL IV PRN (03:02)
[2017-05-28] MEDS ORDERED: Sodium Chloride 0.9% 1000 ML 1,000 ML IV SCH (03:02)
[2017-05-28] MEDS: DUONEB 0.5-3 MG/3 ml Neb IH SCH ×4 (03:30→14:23)
[2017-05-28 05:25] LABS: A-aADO2 64; ABG HEMOGLOBIN 11.8; ABG POTASSIUM 4.5 (3.5-5.1); ABG SITE RIGHT RADIAL; ALLEN TEST OK? YES; ARTERIAL BLD GAS O2 SATURATION 99.6 % (95-100); ARTERIAL BLOOD GAS BASE EXCESS 0.3 (-2.0-2.0); ARTERIAL BLOOD GAS FIO2 40 %; ARTERIAL BLOOD GAS PCO2 51 mmHg (35-45); ARTERIAL BLOOD GAS PO2 157 mmHg (75-100); ARTERIAL BLOOD GAS pH 7.33 (7.35-7.45); CARBOXYHEMOGLOBIN 2.7 % THgb (0.0-6.9); HCO3- 26.9 (22-28); Methhemoglobin 0.9 % (1.4-1.5); paO2 pAO1 0.71
[2017-05-28 06:01] LABS: BASOPHIL % 0.4 % (0.0-0.4); Basophil (Absolute #) 0.03 (0-0.4); Eosinophil % 2.5 % (0.00-5.0); Eosinophil (Absolute #) 0.17 (0-0.5); Granulocyte Absolute (ANC) 3.78 (1.4-6.9); Granulocytes % 55.2 % (36.0-66.0); Hematocrit 36.3 % (35-47); Hemoglobin 11.8 gm/dl (12.0-16.0); Lymphocyte (Absolute #) 2.28 (1.0-4.6); Lymphocytes % 33.2 % (24.0-44.0); Mean Cell Volume 96.8 fl (78-100); Mean Corpuscular Hgb Concent. 32.5 g/dl (32-36); Mean Platelet Volume 10.7 fl (6-9.5); Monocytes % 8.7 % (0.0-12.0); Platelet Count 268 K/mm3 (150-450); Red Blood Count 3.75 M/mm3 (4.1-5.4); Red Cell Distribution Width 12.9 % (11.5-14.0); White Blood Count 6.9 K/mm3 (4.0-10.5)
[2017-05-28 06:12] LABS: Mean Corpuscular Hemoglobin 31.4 pg (26-32)
[2017-05-28] MEDS ORDERED: DUONEB 0.5-3 MG/3 ml Neb IH ONE (06:24)
[2017-05-28 06:53] LABS: ALBUMIN 3.4 g/dL (3.5-5.0); ALKALINE PHOSPHATASE 33 U/L (38-126); ANION GAP 11.7 MEQ/L (5-15); BILIRUBIN,TOTAL < 0.10 mg/dL (0.2-1.3); BLOOD UREA NITROGEN 11 mg/dL (7-17); CHLORIDE 109 mmol/L (98-107); Calcium 8.2 mg/dL (8.4-10.2); Carbon Dioxide 25 mmol/L (22-30); Creatinine 1 0.61 mg/dL (0.52-1.04); Glucose 88 mg/dL (74-106); Potassium 4.3 mmol/L (3.5-5.1); SGOT/AST 20 U/L (14-36); SGPT/ALT 20 U/L (0-35); SODIUM 142 mmol/L (137-145); Total Protein 5.8 g/dL (6.3-8.2)
[2017-05-28 06:57] LABS: ETHYL ALCOHOL < 10 mg/dL (0-9)
--- NOTE | 2017-05-28 08:52 | XRAY ---
Indication: Overdose. Acute mental status change. Multiple contiguous axial images obtained through the head without contrast. Comparison: None Minimal motion artifact. Otherwise grossly normal appearing brain parenchyma, ventricles, and bony calvarium. Visualized paranasal sinuses and mastoid air cells are clear. Impression: Minimal motion artifact. No acute intracranial abnormalities. Comment: Preliminary interpretation was made by [facility]. No critical discrepancy. CTDI 57.98
--- NOTE | 2017-05-28 08:52 | XRAY ---
Indication: Overdose. Acute mental status change. Comparison: March 13, 2016. Portable chest demonstrates normal heart and lungs. Bony thorax intact. No new/acute findings.
[2017-05-28 12:15] VITALS: BP 106/64; PULSE 67; O2SAT 100
--- NOTE | 2017-05-28 13:02 | PCM.SSS ---
History of Present Illness - Chief Complaint Chief Complaint: Overdose of xanax and lexapro History of Present Illness: is a 41 year old female.came to ER with alcohol intoxication and ingestion of unknown amount of xanax and lexapro. Patient was hypoxic in ER and is admitted as observation for further management - Review of Systems Constitutional: No Fever, No Chills Eyes: No Symptoms Ears, Nose, & Throat: No Symptoms Respiratory: No Cough, No Short Of Breath Cardiac: No Chest Pain, No Edema, No Syncope Abdominal/Gastrointestinal: No Abdominal Pain, No Nausea, No Vomiting, No Diarrhea Genitourinary Symptoms: No Dysuria Musculoskeletal: No Back Pain, No Neck Pain Skin: No Rash Neurological: No Dizziness, No Focal Weakness, No Sensory Changes Psychological: No Symptoms Endocrine: No Symptoms Hematologic/Lymphatic: No Symptoms Immunological/Allergic: No Symptoms Medications & Allergies Home Medications: Home Medication List Albuterol 2.5 mg/0.5 ml [PROVENTIL Solution 2.5 MG/0.5 ML] 1 neb IH QIDPRN PRN 05/28/17 [History Confirmed 05/28/17] Albuterol Sulfate [Proair Hfa] 2 puff IH QID 05/28/17 [History Confirmed ] Alprazolam 0.25 mg [xanAX 0.25 MG] 0.25 mg PO BID PRN 05/28/17 [History Confirmed 05/28/17] Escitalopram Oxalate 10 mg [Lexapro 10 MG] 10 mg PO DAILY 05/28/17 [History Confirmed 05/28/17] Fluticasone/Vilanterol [Breo Ellipta 200-25 Mcg INH] 1 puff IH DAILY 05/28/17 [ History Confirmed 05/28/17] Allergies/Adverse Reactions: Allergies Allergy/AdvReac Type Severity Reaction Status Date / Time No Known Drug Allergies Allergy Verified 05/28/17 06:49 - Past Medical History Past Medical History: Yes Neurological History: No Pertinent History ENT History: No Pertinent History Cardiac History: No Pertinent History Respiratory History: COPD, Emphysema Endocrine Medical History: No Pertinent History Musculoskelatal History: No Pertinent History GI Medical History: No Pertinent History History: No Pertinent History Pyscho-Social History: Anxiety, Depression Reproductive Disorders: No Pertinent History - Female History Are you now?: (UNKNOWN) - Past Surgical History Past Surgical History: Yes Neuro Surgical History: No Pertinent History Respiratory Surgery: No Pertinent History GI Surgical History: No Pertinent History Genitourinary Surgical Hx: No Pertinent History Musculskeletal Surgical Hx: No Pertinent History Female Surgical History: Tubal Ligation, Other Other Surgical History: LYMPH NODE BIOPSY. GANGLION CYST REMOVAL - Social History Smoking Status: Current every day smoker How long have you smoked: 25 Exposure to second hand smoke: Yes Alcohol: Weekly Drug Use: marijuana - Physical Exam Vital Signs: Vital Signs - 24 hr Temp Pulse Resp BP Pulse Ox 05/28/17 12:00 98.6 F 67 14 106/64 100 05/28/17 10:10 69 20 94 L 05/28/17 07:10 98.0 F 63 20 101/68 98 05/28/17 06:28 60 15 98 05/28/17 04:00 70 18 96/54 99 05/28/17 03:06 98.2 F 82 19 127/66 100 05/28/17 03:02 100 05/28/17 03:00 65 18 100 05/28/17 02:33 67 106/66 99 05/28/17 01:44 98 05/28/17 01:01 77 16 104/63 99 05/27/17 23:37 93 H 18 98 05/27/17 23:16 98 05/27/17 23:02 97.7 F 83 101/65 100 Oxygen-Last 24 hours O2 Percentage 40% O2 Percentage 40% O2 Percentage 2 Liters = 28% O2 Percentage 2 Liters = 28% General Appearance: no apparent distress, alert Neurologic Exam: alert, oriented x 3, cooperative, normal mood/affect, nml cerebellar function, nml station & gait, sensation nml, No motor deficits Eye Exam: PERRL/EOMI, eyes nml inspection Ears, Nose, Throat Exam: normal ENT inspection, TMs normal, pharynx normal, moist mucous membranes Neck Exam: normal inspection, non-tender, supple, full range of motion Respiratory Exam: normal breath sounds, lungs clear, No respiratory distress Cardiovascular Exam: regular rate/rhythm, normal heart sounds, normal peripheral pulses Gastrointestinal/Abdomen Exam: soft, normal bowel sounds, No tenderness, No mass Back Exam: normal inspection, normal range of motion, No CVA tenderness, No vertebral tenderness Extremity Exam: normal inspection, normal range of motion, pelvis stable Skin Exam: normal color, warm, dry, No rash Lymphatic Exam: No adenopathy Results - Labs Lab/Micro Results: Lab Results-Last 24 Hours 05/28/17 05/28/17 05/28/17 Range/Units 05:20 05:27 05:27 WBC 6.9 (4.0-10.5) K/mm3 RBC 3.75 L (4.1-5.4) M/mm3 Hgb 11.8 L (12.0-16.0) gm/dl Hct 36.3 (35-47) % MCV 96.8 (78-100) fl MCH 31.4 (26-32) pg MCHC 32.5 (32-36) g/dl RDW 12.9 (11.5-14.0) % Plt Count 268 (150-450) K/mm3 MPV 10.7 H (6-9.5) fl Gran % 55.2 (36.0-66.0) % Eos # (Auto) 0.17 (0-0.5) Absolute Lymphs (auto) 2.28 (1.0-4.6) Absolute Monos (auto) 0.60 (0.0-1.3) Lymphocytes % 33.2 (24.0-44.0) % Monocytes % 8.7 (0.0-12.0) % Eosinophils % 2.5 (0.00-5.0) % Basophils % 0.4 (0.0-0.4) % Absolute Granulocytes 3.78 (1.4-6.9) Basophils # 0.03 (0-0.4) Puncture Site RIGHT RADIAL pCO2 51 H (35-45) mmHg pO2 157 H* (75-100) mmHg Base Excess 0.3 (-2.0-2.0) O2 Saturation 96.0 (94-100) g/dF ABG pH 7.33 L (7.35-7.45) ABG HCO3 26.9 (22-28) ABG O2 Sat (Measured) 99.6 (95-100) % Michael Test YES A-a Gradient 64 a/A Ratio 0.71 Hemoglobin 11.8 Carboxyhemoglobin 2.7 (0.0-6.9) % THgb Methemoglobin 0.9 L (1.4-1.5) % Potassium 4.5 (3.5-5.1) Temperature 37.0 C POC O2 Flow Rate 40 % Sodium (137-145) mmol/L Chloride (98-107) mmol/L Carbon Dioxide (22-30) mmol/L Anion Gap (5-15) MEQ/L BUN (7-17) mg/dL Creatinine (0.52-1.04) mg/dL Estimated GFR ML/MIN Glucose (74-106) mg/dL Calcium (8.4-10.2) mg/dL Total Bilirubin (0.2-1.3) mg/dL AST (14-36) U/L ALT (0-35) U/L Alkaline Phosphatase (38-126) U/L Troponin I < 0.012 (0.000-0.034) ng/mL Serum Total Protein (6.3-8.2) g/dL Albumin (3.5-5.0) g/dL Ethyl Alcohol (0-9) mg/dL 05/28/17 05/28/17 05/28/17 Range/Units 05:27 08:33 11:31 WBC (4.0-10.5) K/mm3 RBC (4.1-5.4) M/mm3 Hgb (12.0-16.0) gm/dl Hct (35-47) % MCV (78-100) fl MCH (26-32) pg MCHC (32-36) g/dl RDW (11.5-14.0) % Plt Count (150-450) K/mm3 MPV (6-9.5) fl Gran % (36.0-66.0) % Eos # (Auto) (0-0.5) Absolute Lymphs (auto) (1.0-4.6) Absolute Monos (auto) (0.0-1.3) Lymphocytes % (24.0-44.0) % Monocytes % (0.0-12.0) % Eosinophils % (0.00-5.0) % Basophils % (0.0-0.4) % Absolute Granulocytes (1.4-6.9) Basophils # (0-0.4) Puncture Site pCO2 (35-45) mmHg pO2 (75-100) mmHg Base Excess (-2.0-2.0) O2 Saturation (94-100) g/dF ABG pH (7.35-7.45) ABG HCO3 (22-28) ABG O2 Sat (Measured) (95-100) % Michael Test A-a Gradient a/A Ratio Hemoglobin Carboxyhemoglobin (0.0-6.9) % THgb Methemoglobin (1.4-1.5) % Potassium 4.3 (3.5-5.1) Temperature C POC O2 Flow Rate % Sodium 142 (137-145) mmol/L Chloride 109 H (98-107) mmol/L Carbon Dioxide 25 (22-30) mmol/L Anion Gap 11.7 (5-15) MEQ/L BUN 11 (7-17) mg/dL Creatinine 0.61 (0.52-1.04) mg/dL Estimated GFR > 60 ML/MIN Glucose 88 (74-106) mg/dL Calcium 8.2 L (8.4-10.2) mg/dL Total Bilirubin < 0.10 L (0.2-1.3) mg/dL AST 20 (14-36) U/L ALT 20 (0-35) U/L Alkaline Phosphatase 33 L (38-126) U/L Troponin I < 0.012 < 0.012 (0.000-0.034) ng/mL Serum Total Protein 5.8 L (6.3-8.2) g/dL Albumin 3.4 L (3.5-5.0) g/dL Ethyl Alcohol < 10 H (0-9) mg/dL - Other Procedures and Tests Respiratory Therapy 05/28/17 03:00 Respiratory Nebulizer Q4H 05/28/17 13:00 EKG ROUTINE Assessment/Plan (1) Acute respiratory failure Current Visit: Yes Status: Resolved Onset Date: ~05/28/17 Assessment & Plan: centrally respiratory depression. Code(s): J96.00 - ACUTE RESPIRATORY FAILURE, UNSP W HYPOXIA OR HYPERCAPNIA (2) Alcohol intoxication Current Visit: Yes Status: Resolved Onset Date: ~05/28/17 (3) Overdose Current Visit: Yes Status: Acute Onset Date: ~05/28/17 Qualifiers: Encounter type: initial encounter Assessment & Plan: unknown amount of xanax and lexapro, will get psych consult Code(s): T50.901A - POISONING BY UNSP DRUG/MEDS/BIOL SUBST, ACCIDENTAL, INIT Hospital Summary - Hospital Course Hospital Course: Chief Complaint Diagnosis Overdose Allergies Allergy/AdvReac Type Severity Reaction Status Date / Time No Known Drug Allergies Allergy Verified 05/28/17 06:49 Vital Signs (Last 24 hours) Temp Pulse Resp BP Pulse Ox 05/28/17 12:00 98.6 F 67 14 106/64 100 05/28/17 10:10 69 20 94 L 05/28/17 07:10 98.0 F 63 20 101/68 98 05/28/17 06:28 60 15 98 05/28/17 04:00 70 18 96/54 99 05/28/17 03:06 98.2 F 82 19 127/66 100 05/28/17 03:02 100 05/28/17 03:00 65 18 100 05/28/17 02:33 67 106/66 99 05/28/17 01:44 98 05/28/17 01:01 77 16 104/63 99 05/27/17 23:37 93 H 18 98 05/27/17 23:16 98 05/27/17 23:02 97.7 F 83 101/65 100 Home Medications Medication Instructions Recorded Confirmed Last Taken Type Albuterol 2.5 mg/0.5 ml 1 neb IH QIDPRN PRN 05/28/17 05/28/17 Unknown History [PROVENTIL Solution 2.5 MG/0.5 ML] Albuterol Sulfate [Proair Hfa] 2 puff IH QID 05/28/17 05/28/17 05/27/17 History Alprazolam 0.25 mg [xanAX 0.25 0.25 mg PO BID PRN 05/28/17 05/28/17 05/27/17 22:00 History MG] Escitalopram Oxalate 10 mg 10 mg PO DAILY 05/28/17 05/28/17 05/27/17 22:00 History [Lexapro 10 MG] Fluticasone/Vilanterol [Breo 1 puff IH DAILY 05/28/17 05/28/17 Unknown History Ellipta 200-25 Mcg INH] Current Medications Generic Name Dose Route Start Last Admin Trade Name Freq PRN Reason Stop Dose Admin Albuterol Sulfate 2.5 mg 05/28/17 03:02 Proventil 2.5 Mg/3 Ml Neb IH 06/27/17 03:01 Q2H PRN PRN SHORTNESS OF BREATH/WHEEZING Albuterol/Ipratropium 3 ml 05/28/17 03:02 05/28/17 10:08 Duoneb 0.5-3 Mg/3 Ml Neb IH 06/27/17 03:01 3 ml Q4HRT SOPHIA Administration Sodium Chloride 1,000 mls @ 100 mls/hr 05/28/17 03:02 05/28/17 04:42 Sodium Chloride 0.9% 1000 Ml IV 06/27/17 03:01 100 mls/hr .Q10H SOPHIA Administration Ondansetron HCl 4 mg 05/28/17 03:02 Zofran 4 Mg/2 Ml Vial IV 06/27/17 03:01 Q6H PRN PRN NAUSEA/VOMITING Discontinued Medications Generic Name Dose Route Start Last Admin Trade Name Freq PRN Reason Stop Dose Admin Albuterol Sulfate 2.5 mg 05/27/17 23:36 05/27/17 23:40 Proventil 2.5 Mg/3 Ml Neb IH 05/27/17 23:37 2.5 mg STAT ONE Administration Albuterol Sulfate Confirm 05/27/17 23:42 Proventil 2.5 Mg/3 Ml Neb Administered 05/27/17 23:43 Dose 2.5 mg IH .STK-MED ONE Albuterol/Ipratropium Confirm 05/28/17 06:24 Duoneb 0.5-3 Mg/3 Ml Neb Administered 05/28/17 06:25 Dose 3 ml IH .STK-MED ONE Flumazenil 0.2 mg 05/27/17 23:50 05/27/17 23:54 Romazicon 0.5 Mg/5 Ml Injection IV 05/27/17 23:51 0.2 mg STAT ONE Administration Flumazenil Confirm 05/27/17 23:53 Romazicon 0.5 Mg/5 Ml Injection Administered 05/27/17 23:54 Dose 0.1 mg .ROUTE .STK-MED ONE Sodium Chloride 1,000 mls @ 100 mls/hr 05/27/17 23:15 05/27/17 23:20 Sodium Chloride 0.9% 1000 Ml IV 06/26/17 23:14 100 mls/hr .Q10H SOPHIA Administration Sodium Chloride Confirm 05/27/17 23:19 Sodium Chloride 0.9% 1000 Ml Administered 05/27/17 23:20 Dose 1,000 mls @ ud .ROUTE .STK-MED ONE Intake & Output (Last 24 hours) 05/26/17 05/27/17 05/28/17 05/29/17 11:59 11:59 11:59 11:59 Intake Total 202 Balance 202 Weight 53.4 kg Microbiology Results (Last 24 hours) 05/27/17 23:45 Throat Throat Culture - Pending Laboratory Results (Last 24 hours) 05/28/17 05/28/17 05/28/17 11:31 08:33 05:27 WBC RBC Hgb Hct MCV MCH MCHC RDW Plt Count MPV Gran % Eos # (Auto) Absolute Lymphs (auto) Absolute Monos (auto) Lymphocytes % Monocytes % Eosinophils % Basophils % Absolute Granulocytes Basophils # Puncture Site pCO2 pO2 Base Excess O2 Saturation ABG pH ABG HCO3 ABG O2 Sat (Measured) Michael Test A-a Gradient a/A Ratio Hemoglobin Carboxyhemoglobin Methemoglobin Temperature POC O2 Flow Rate Sodium 142 Potassium 4.3 Chloride 109 H Carbon Dioxide 25 Anion Gap 11.7 BUN 11 Creatinine 0.61 Estimated GFR > 60 Glucose 88 Calcium 8.2 L Magnesium Total Bilirubin < 0.10 L AST 20 ALT 20 Alkaline Phosphatase 33 L Troponin I < 0.012 < 0.012 Serum Total Protein 5.8 L Albumin 3.4 L Amylase Lipase Serum , Qual Ur Collection Type Urine Color Urine Appearance Urine pH Ur Specific [place] Urine Protein Urine Ketones Urine Blood Urine Nitrite Urine Bilirubin Urine Urobilinogen Ur Leukocyte Esterase Urine Culture Reflexed Urine Glucose Salicylates Urine Opiates Level Ur Methadone Acetaminophen Urine Barbiturates Ur Phencyclidine (PCP) Urine Amphetamine U Benzodiazepine Level Urine Cocaine Urine Marijuana (THC) Ethyl Alcohol < 10 H Monoscreen Influenza Type A Ag Influenza Type B Ag RSV (PCR) Streptococcus Screen Specimen Received 05/28/17 05/28/17 05/28/17 05:27 05:27 05:20 WBC 6.9 RBC 3.75 L Hgb 11.8 L Hct 36.3 MCV 96.8 MCH 31.4 MCHC 32.5 RDW 12.9 Plt Count 268 MPV 10.7 H Gran % 55.2 Eos # (Auto) 0.17 Absolute Lymphs (auto) 2.28 Absolute Monos (auto) 0.60 Lymphocytes % 33.2 Monocytes % 8.7 Eosinophils % 2.5 Basophils % 0.4 Absolute Granulocytes 3.78 Basophils # 0.03 Puncture Site RIGHT RADIAL pCO2 51 H pO2 157 H* Base Excess 0.3 O2 Saturation 96.0 ABG pH 7.33 L ABG HCO3 26.9 ABG O2 Sat (Measured) 99.6 Michael Test YES A-a Gradient 64 a/A Ratio 0.71 Hemoglobin 11.8 Carboxyhemoglobin 2.7 Methemoglobin 0.9 L Temperature 37.0 POC O2 Flow Rate 40 Sodium Potassium 4.5 Chloride Carbon Dioxide Anion Gap BUN Creatinine Estimated GFR Glucose Calcium Magnesium Total Bilirubin AST ALT Alkaline Phosphatase Troponin I < 0.012 Serum Total Protein Albumin Amylase Lipase Serum , Qual Ur Collection Type Urine Color Urine Appearance Urine pH Ur Specific [place] Urine Protein Urine Ketones Urine Blood Urine Nitrite Urine Bilirubin Urine Urobilinogen Ur Leukocyte Esterase Urine Culture Reflexed Urine Glucose Salicylates Urine Opiates Level Ur Methadone Acetaminophen Urine Barbiturates Ur Phencyclidine (PCP) Urine Amphetamine U Benzodiazepine Level Urine Cocaine Urine Marijuana (THC) Ethyl Alcohol Monoscreen Influenza Type A Ag Influenza Type B Ag RSV (PCR) Streptococcus Screen Specimen Received 05/28/17 05/28/17 05/27/17 02:25 01:13 Unknown WBC RBC Hgb Hct MCV MCH MCHC RDW Plt Count MPV Gran % Eos # (Auto) Absolute Lymphs (auto) Absolute Monos (auto) Lymphocytes % Monocytes % Eosinophils % Basophils % Absolute Granulocytes Basophils # Puncture Site RIGHT RADIAL pCO2 52 H pO2 61 L Base Excess -1.4 O2 Saturation 87.0 L ABG pH 7.30 L ABG HCO3 25.6 ABG O2 Sat (Measured) 92.8 L Michael Test YES A-a Gradient 74 a/A Ratio 0.45 Hemoglobin 12.2 Carboxyhemoglobin 5.6 Methemoglobin 0.7 L Temperature 37.0 POC O2 Flow Rate 28 Sodium Potassium 4.1 Chloride Carbon Dioxide Anion Gap BUN Creatinine Estimated GFR Glucose Calcium Magnesium Total Bilirubin AST ALT Alkaline Phosphatase Troponin I < 0.012 Serum Total Protein Albumin Amylase Lipase Serum , Qual Ur Collection Type Urine Color Urine Appearance Urine pH Ur Specific [place] Urine Protein Urine Ketones Urine Blood Urine Nitrite Urine Bilirubin Urine Urobilinogen Ur Leukocyte Esterase Urine Culture Reflexed Urine Glucose Salicylates Urine Opiates Level Ur Methadone Acetaminophen Urine Barbiturates Ur Phencyclidine (PCP) Urine Amphetamine U Benzodiazepine Level Urine Cocaine Urine Marijuana (THC) Ethyl Alcohol Monoscreen NEGATIVE Influenza Type A Ag Influenza Type B Ag RSV (PCR) Streptococcus Screen Specimen Received 05/27/17 05/27/17 05/27/17 23:45 23:45 23:45 WBC RBC Hgb Hct MCV MCH MCHC RDW Plt Count MPV Gran % Eos # (Auto) Absolute Lymphs (auto) Absolute Monos (auto) Lymphocytes % Monocytes % Eosinophils % Basophils % Absolute Granulocytes Basophils # Puncture Site pCO2 pO2 Base Excess O2 Saturation ABG pH ABG HCO3 ABG O2 Sat (Measured) Michael Test A-a Gradient a/A Ratio Hemoglobin Carboxyhemoglobin Methemoglobin Temperature POC O2 Flow Rate Sodium Potassium Chloride Carbon Dioxide Anion Gap BUN Creatinine Estimated GFR Glucose Calcium Magnesium Total Bilirubin AST ALT Alkaline Phosphatase Troponin I Serum Total Protein Albumin Amylase Lipase Serum , Qual Ur Collection Type Urine Color Urine Appearance Urine pH Ur Specific [place] Urine Protein Urine Ketones Urine Blood Urine Nitrite Urine Bilirubin Urine Urobilinogen Ur Leukocyte Esterase Urine Culture Reflexed Urine Glucose Salicylates Urine Opiates Level NEGATIVE Ur Methadone NEGATIVE Acetaminophen Urine Barbiturates NEGATIVE Ur Phencyclidine (PCP) NEGATIVE Urine Amphetamine NEGATIVE U Benzodiazepine Level POSITIVE Urine Cocaine NEGATIVE Urine Marijuana (THC) NEGATIVE Ethyl Alcohol Monoscreen Influenza Type A Ag NEGATIVE Influenza Type B Ag NEGATIVE RSV (PCR) NEGATIVE Streptococcus Screen NEGATIVE Specimen Received 05/27/17 05/27/17 05/27/17 23:45 23:20 23:15 WBC RBC Hgb Hct MCV MCH MCHC RDW Plt Count MPV Gran % Eos # (Auto) Absolute Lymphs (auto) Absolute Monos (auto) Lymphocytes % Monocytes % Eosinophils % Basophils % Absolute Granulocytes Basophils # Puncture Site RIGHT RADIAL pCO2 53 H pO2 93 Base Excess -1.1 O2 Saturation 90.7 L ABG pH 7.30 L ABG HCO3 26.1 ABG O2 Sat (Measured) 98.6 Michael Test YES A-a Gradient 40 a/A Ratio 0.70 Hemoglobin 13.5 Carboxyhemoglobin 7.0 H* Methemoglobin 1.0 L Temperature 37.0 POC O2 Flow Rate 28 Sodium Potassium 3.9 Chloride Carbon Dioxide Anion Gap BUN Creatinine Estimated GFR Glucose Calcium Magnesium Total Bilirubin AST ALT Alkaline Phosphatase Troponin I Serum Total Protein Albumin Amylase Lipase Serum , Qual NEGATIVE Ur Collection Type CATH Urine Color YELLOW Urine Appearance CLEAR Urine pH 5.0 Ur Specific [place] 1.030 Urine Protein NEGATIVE Urine Ketones NEGATIVE Urine Blood NEGATIVE Urine Nitrite NEGATIVE Urine Bilirubin NEGATIVE Urine Urobilinogen NORMAL Ur Leukocyte Esterase NEGATIVE Urine Culture Reflexed NO Urine Glucose NEGATIVE Salicylates Urine Opiates Level Ur Methadone Acetaminophen Urine Barbiturates Ur Phencyclidine (PCP) Urine Amphetamine U Benzodiazepine Level Urine Cocaine Urine Marijuana (THC) Ethyl Alcohol Monoscreen Influenza Type A Ag Influenza Type B Ag RSV (PCR) Streptococcus Screen Specimen Received 05/27/17 2345 05/27/17 05/27/17 05/27/17 23:15 23:15 23:15 WBC RBC Hgb Hct MCV MCH MCHC RDW Plt Count MPV Gran % Eos # (Auto) Absolute Lymphs (auto) Absolute Monos (auto) Lymphocytes % Monocytes % Eosinophils % Basophils % Absolute Granulocytes Basophils # Puncture Site pCO2 pO2 Base Excess O2 Saturation ABG pH ABG HCO3 ABG O2 Sat (Measured) Michael Test A-a Gradient a/A Ratio Hemoglobin Carboxyhemoglobin Methemoglobin Temperature POC O2 Flow Rate Sodium 144 Potassium 3.9 Chloride 107 Carbon Dioxide 25 Anion Gap 15.2 H BUN 10 Creatinine 0.75 Estimated GFR > 60 Glucose 94 Calcium 8.8 Magnesium 1.9 Total Bilirubin < 0.10 L AST 24 ALT 23 Alkaline Phosphatase 42 Troponin I < 0.012 Serum Total Protein 6.8 Albumin 4.1 Amylase 92 Lipase 249 Serum , Qual Ur Collection Type Urine Color Urine Appearance Urine pH Ur Specific [place] Urine Protein Urine Ketones Urine Blood Urine Nitrite Urine Bilirubin Urine Urobilinogen Ur Leukocyte Esterase Urine Culture Reflexed Urine Glucose Salicylates < 1.0 L Urine Opiates Level Ur Methadone Acetaminophen < 10 L Urine Barbiturates Ur Phencyclidine (PCP) Urine Amphetamine U Benzodiazepine Level Urine Cocaine Urine Marijuana (THC) Ethyl Alcohol 155 H Monoscreen Influenza Type A Ag Influenza Type B Ag RSV (PCR) Streptococcus Screen Specimen Received 05/27/17 23:15 WBC 8.5 RBC 4.36 Hgb 13.7 Hct 41.4 MCV 95.0 MCH 31.4 MCHC 33.1 RDW 12.8 Plt Count 310 MPV 10.6 H Gran % 56.0 Eos # (Auto) 0.24 Absolute Lymphs (auto) 2.90 Absolute Monos (auto) 0.55 Lymphocytes % 34.1 Monocytes % 6.5 Eosinophils % 2.8 Basophils % 0.6 Absolute Granulocytes 4.77 Basophils # 0.05 Puncture Site pCO2 pO2 Base Excess O2 Saturation ABG pH ABG HCO3 ABG O2 Sat (Measured) Michael Test A-a Gradient a/A Ratio Hemoglobin Carboxyhemoglobin Methemoglobin Temperature POC O2 Flow Rate Sodium Potassium Chloride Carbon Dioxide Anion Gap BUN Creatinine Estimated GFR Glucose Calcium Magnesium Total Bilirubin AST ALT Alkaline Phosphatase Troponin I Serum Total Protein Albumin Amylase Lipase Serum , Qual Ur Collection Type Urine Color Urine Appearance Urine pH Ur Specific [place] Urine Protein Urine Ketones Urine Blood Urine Nitrite Urine Bilirubin Urine Urobilinogen Ur Leukocyte Esterase Urine Culture Reflexed Urine Glucose Salicylates Urine Opiates Level Ur Methadone Acetaminophen Urine Barbiturates Ur Phencyclidine (PCP) Urine Amphetamine U Benzodiazepine Level Urine Cocaine Urine Marijuana (THC) Ethyl Alcohol Monoscreen Influenza Type A Ag Influenza Type B Ag RSV (PCR) Streptococcus Screen Specimen Received Orders (Last 24 hours) Category Date Time Status Bedrest ROUTINE Activity 05/28/17 03:02 Active Contract Paralegal STAT Care 05/27/17 23:11 Completed Cath for Specimen-Straight STAT Care 05/27/17 23:52 Completed Code Status Order ROUTINE Care 05/28/17 03:02 Active EKG-ER Only STAT Care 05/27/17 23:11 Completed IV Care Q4H Care 05/28/17 03:02 Active IV Insertion STAT Care 05/27/17 23:11 Completed IV Insertion-2nd Peripheral STAT Care 05/27/17 23:16 Completed Intake and Output Q12H Care 05/28/17 03:02 Active Neuro Checks Q4H Care 05/28/17 03:02 Active Oxygen-ED Only NASAL CANNULA 2 lpm Care 05/27/17 23:[address] in Observation ROUTINE Care 05/28/17 03:02 Active Psychiatric Evaluation STAT Care 05/28/17 09:00 Inactive Pulse Oximetry (ED) STAT Care 05/27/17 23:11 Completed Vital Signs Q4H Care 05/28/17 03:02 Active Weight,Daily 0600 Care 05/28/17 03:02 Active tele-mental [Psychiatric Evaluation] STAT Care 05/28/17 09:40 Active Natural Resources Professor/Discharge Plan Cons 05/28/17 03:02 Active NPO Diet 05/28/17 01:46 Completed Regular Diet Diet 05/28/17 Lunch Active CHEST 1 VIEW (PORTABLE) Stat Exams 05/27/17 23:13 Completed HEAD WITHOUT CONTRAST [CT] Stat Exams 05/27/17 23:14 Completed ACETAMINOPHEN Stat Lab 05/27/17 23:15 Completed AMYLASE Stat Lab 05/27/17 23:15 Completed ARTERIAL BLOOD GASES AM.LAB Lab 05/28/17 05:20 Completed ARTERIAL BLOOD GASES Stat Lab 05/27/17 23:20 Completed ARTERIAL BLOOD GASES Stat Lab 05/28/17 01:13 Completed CBC W DIFF AM.LAB Lab 05/28/17 05:27 Completed CBC W DIFF Stat Lab 05/27/17 23:15 Completed CMP AM.LAB Lab 05/28/17 05:27 Completed CMP Stat Lab 05/27/17 23:15 Completed CULTURE, THROAT Stat Lab 05/27/17 23:45 Received ETHYL ALCOHOL AM.LAB Lab 05/28/17 05:27 Completed ETHYL ALCOHOL Stat Lab 05/27/17 23:15 Completed HCG QUALITATIVE,SERUM Stat Lab 05/27/17 23:15 Completed LIPASE Stat Lab 05/27/17 23:15 Completed MAGNESIUM Stat Lab 05/27/17 23:15 Completed Respiratory Panel Stat Lab 05/27/17 23:45 Completed SALICYLATE Stat Lab 05/27/17 23:15 Completed STREP SCREEN-BETA A Stat Lab 05/27/17 23:45 Completed TROPONIN Q3H Lab 05/27/17 23:15 Completed TROPONIN Q3H Lab 05/28/17 02:25 Completed TROPONIN Q3H Lab 05/28/17 05:27 Completed TROPONIN Q3H Lab 05/28/17 08:33 Completed TROPONIN Q3H Lab 05/28/17 11:31 Completed UA W/RFX UR CULTURE Stat Lab 05/27/17 23:45 Completed Urine Triage Profile Stat Lab 05/27/17 23:45 Completed Albuterol 2.5 mg/3 ml Neb [Proventil 2.5 mg/3 ml Neb Med 05/27/17 23:42 Discontinued ] 2.5 mg IH .STK-MED ONE Albuterol 2.5 mg/3 ml Neb [Proventil 2.5 mg/3 ml Neb Med 05/28/17 03:02 Active ] 2.5 mg IH Q2H PRN PRN Albuterol 2.5 mg/3 ml Neb [Proventil 2.5 mg/3 ml Neb Med 05/27/17 23:36 Discontinued ] 2.5 mg IH STAT ONE Albuterol/Ipratropium 3ml Neb* [DUONEB 0.5-3 MG/3 ml Med 05/28/17 06:24 Discontinued Neb] 3 ml IH .STK-MED ONE Albuterol/Ipratropium 3ml Neb* [DUONEB 0.5-3 MG/3 ml Med 05/28/17 03:02 Active Neb] 3 ml IH Q4HRT Flumazenil 0.5 mg/5 ml [Romazicon 0.5 MG/5 ML Med 05/27/17 23:53 Discontinued Injection] 0.1 mg .ROUTE .STK-MED ONE Flumazenil 0.5 mg/5 ml [Romazicon 0.5 MG/5 ML Med 05/27/17 23:50 Discontinued Injection] 0.2 mg IV STAT ONE NaCl 0.9% 1000 ml [Sodium Chloride 0.9% 1000 ML] 1,000 Med 05/27/17 23:15 Discontinued ml IV 100 mls/hr NaCl 0.9% 1000 ml [Sodium Chloride 0.9% 1000 ML] 1,000 Med 05/28/17 03:02 Active ml IV 100 mls/hr Ondansetron HCl 4 mg/2 ml [Zofran 4 MG/2 ML VIAL] Med 05/28/17 03:02 Active 4 mg IV Q6H PRN PRN BiPap/CPAP Assessment RT 05/28/17 03:02 Active BiPap/CPAP Assessment STAT RT 05/28/17 00:06 Completed EKG Q8HX2 RT 05/28/17 04:00 Completed EKG ROUTINE RT 05/28/17 13:00 Active Pulse Oximetry CONTINUOUS RT 05/28/17 03:02 Active Respiratory Nebulizer Q4H RT 05/28/17 03:00 Active Respiratory Nebulizer STAT RT 05/27/17 23:37 Completed Respiratory Therapy Consult RT 05/28/17 03:02 Completed Smoking Cessation Education RT 05/28/17 03:31 Completed Transfer Order Routine Transfer 05/28/17 Completed Patient Care Notes (Last 24 hours) 05/28/17 12:58 Nursing Note by Racquel Millan being completed at this time Initialized on 05/28/17 12:58 - END OF NOTE 05/28/17 11:45 Nursing Note by Racquel Millan discussed with house cleaner supervisor if it was ok to do a [facility] [facility] consult since pt works for the [employer] in [place]. earl hanna advises that it is ok d/t [facility] should not find out because of confidentiality. pt agreed to consult. telehealth paper work faxed to the [employer] at this time. Initialized on 05/28/17 11:45 - END OF NOTE - Vitals & Intake/Output Vital Signs: Vital Signs Temperature 98.6 F 05/28/17 12:00 Pulse Rate 67 05/28/17 12:00 Respiratory Rate 14 05/28/17 12:00 Blood Pressure 106/64 05/28/17 12:00 O2 Sat by Pulse Oximetry 100 05/28/17 12:00 Oxygen-Last Documented O2 Percentage 40% Intake & Output: Intake & Output 05/26/17 05/27/17 05/28/17 05/29/17 11:59 11:59 11:59 11:59 Intake Total 202 Balance 202 Weight 53.4 kg - Lab Result Diagrams: 05/28/17 05:27 05/28/17 05:27 Lab Results-Last 24 Hrs: Lab Results-Last 24 Hours 05/28/17 05/28/17 05/28/17 Range/Units 05:20 05:27 05:27 WBC 6.9 (4.0-10.5) K/mm3 RBC 3.75 L (4.1-5.4) M/mm3 Hgb 11.8 L (12.0-16.0) gm/dl Hct 36.3 (35-47) % MCV 96.8 (78-100) fl MCH 31.4 (26-32) pg MCHC 32.5 (32-36) g/dl RDW 12.9 (11.5-14.0) % Plt Count 268 (150-450) K/mm3 MPV 10.7 H (6-9.5) fl Gran % 55.2 (36.0-66.0) % Eos # (Auto) 0.17 (0-0.5) Absolute Lymphs (auto) 2.28 (1.0-4.6) Absolute Monos (auto) 0.60 (0.0-1.3) Lymphocytes % 33.2 (24.0-44.0) % Monocytes % 8.7 (0.0-12.0) % Eosinophils % 2.5 (0.00-5.0) % Basophils % 0.4 (0.0-0.4) % Absolute Granulocytes 3.78 (1.4-6.9) Basophils # 0.03 (0-0.4) Puncture Site RIGHT RADIAL pCO2 51 H (35-45) mmHg pO2 157 H* (75-100) mmHg Base Excess 0.3 (-2.0-2.0) O2 Saturation 96.0 (94-100) g/dF ABG pH 7.33 L (7.35-7.45) ABG HCO3 26.9 (22-28) ABG O2 Sat (Measured) 99.6 (95-100) % Michael Test YES A-a Gradient 64 a/A Ratio 0.71 Hemoglobin 11.8 Carboxyhemoglobin 2.7 (0.0-6.9) % THgb Methemoglobin 0.9 L (1.4-1.5) % Potassium 4.5 (3.5-5.1) Temperature 37.0 C POC O2 Flow Rate 40 % Sodium (137-145) mmol/L Chloride (98-107) mmol/L Carbon Dioxide (22-30) mmol/L Anion Gap (5-15) MEQ/L BUN (7-17) mg/dL Creatinine (0.52-1.04) mg/dL Estimated GFR ML/MIN Glucose (74-106) mg/dL Calcium (8.4-10.2) mg/dL Total Bilirubin (0.2-1.3) mg/dL AST (14-36) U/L ALT (0-35) U/L Alkaline Phosphatase (38-126) U/L Troponin I < 0.012 (0.000-0.034) ng/mL Serum Total Protein (6.3-8.2) g/dL Albumin (3.5-5.0) g/dL Ethyl Alcohol (0-9) mg/dL 05/28/17 05/28/17 05/28/17 Range/Units 05:27 08:33 11:31 WBC (4.0-10.5) K/mm3 RBC (4.1-5.4) M/mm3 Hgb (12.0-16.0) gm/dl Hct (35-47) % MCV (78-100) fl MCH (26-32) pg MCHC (32-36) g/dl RDW (11.5-14.0) % Plt Count (150-450) K/mm3 MPV (6-9.5) fl Gran % (36.0-66.0) % Eos # (Auto) (0-0.5) Absolute Lymphs (auto) (1.0-4.6) Absolute Monos (auto) (0.0-1.3) Lymphocytes % (24.0-44.0) % Monocytes % (0.0-12.0) % Eosinophils % (0.00-5.0) % Basophils % (0.0-0.4) % Absolute Granulocytes (1.4-6.9) Basophils # (0-0.4) Puncture Site pCO2 (35-45) mmHg pO2 (75-100) mmHg Base Excess (-2.0-2.0) O2 Saturation (94-100) g/dF ABG pH (7.35-7.45) ABG HCO3 (22-28) ABG O2 Sat (Measured) (95-100) % Michael Test A-a Gradient a/A Ratio Hemoglobin Carboxyhemoglobin (0.0-6.9) % THgb Methemoglobin (1.4-1.5) % Potassium 4.3 (3.5-5.1) Temperature C POC O2 Flow Rate % Sodium 142 (137-145) mmol/L Chloride 109 H (98-107) mmol/L Carbon Dioxide 25 (22-30) mmol/L Anion Gap 11.7 (5-15) MEQ/L BUN 11 (7-17) mg/dL Creatinine 0.61 (0.52-1.04) mg/dL Estimated GFR > 60 ML/MIN Glucose 88 (74-106) mg/dL Calcium 8.2 L (8.4-10.2) mg/dL Total Bilirubin < 0.10 L (0.2-1.3) mg/dL AST 20 (14-36) U/L ALT 20 (0-35) U/L Alkaline Phosphatase 33 L (38-126) U/L Troponin I < 0.012 < 0.012 (0.000-0.034) ng/mL Serum Total Protein 5.8 L (6.3-8.2) g/dL Albumin 3.4 L (3.5-5.0) g/dL Ethyl Alcohol < 10 H (0-9) mg/dL - Procedures and Test Procedures and Tests throughout Hospitalization: Therapy Orders & Screens 05/28/17 03:00 Respiratory Nebulizer Q4H Comment: Diagnosis: Overdose 05/28/17 03:31 Smoking Cessation Education Comment: Diagnosis: Overdose Smoking Status: Current every day smoker How long have you smoked: 25 Have you smoked in the past 12 months: Yes Do you dip or chew tobacco: No 05/28/17 13:00 EKG ROUTINE Comment: Diagnosis: Overdose - Discharge Discharge Date: 05/28/17 Disposition: Home, Self-Care Condition: Stable Prescriptions: No Action Escitalopram Oxalate 10 mg [Lexapro 10 MG] 10 mg PO DAILY Alprazolam 0.25 mg [xanAX 0.25 MG] 0.25 mg PO BID PRN PRN Reason: Anxiety Fluticasone/Vilanterol [Breo Ellipta 200-25 Mcg INH] 1 puff IH DAILY Albuterol Sulfate [Proair Hfa] 2 puff IH QID Albuterol 2.5 mg/0.5 ml [PROVENTIL Solution 2.5 MG/0.5 ML] 1 neb IH QIDPRN PRN PRN Reason: Shortness Of Breath/Wheezing Follow up with: SAVANAH GOLDBERG [Primary Care Provider] - 1 Week
== END 2017-05-28 14:45 | disposition home or self-care (01) ==
LOC: ED 23:00 → UNDOADMOB 05-28 02:39 → ICU 05-28 02:39 → UNDODISOB 05-28 14:45
PROVIDERS: ADMIT General Practice; ATTEND General Practice
DX: J96.00 Acute respiratory failure, unspecified whether with hypoxia or hypercapnia (principal); F10.129 Alcohol abuse with intoxication, unspecified; T42.4X1A Poisoning by benzodiazepines, accidental (unintentional), initial encounter; T43.221A Poisoning by selective serotonin reuptake inhibitors, accidental (unintentional), initial encounter; F41.9 Anxiety disorder, unspecified; Z79.899 Other long term (current) drug therapy
CPT/HCPCS: 36000; 36415; 36600; 70450; 71045; 80053; 80302; 80307; 81002; 82150; 82375; 82803; 83690; 83735; 84484; 84703; 85025; 86308; 87070; 87430; 87631; 90791; 93005; 93041; 93268; 94002; 94003; 94640; 96360; 96361; 96374; 99285; G0481; P9612; Q3014; A9270-GY; G0378; G0480

== ENCOUNTER 2020-02-24 06:26 | Day surgery (SDC) | payer BC ==
[2020-02-24] MEDS ORDERED: KEFZOL 1 GM/50 ML PREMIX** 1 GM/50 ML IVPB IV SCH (06:30)
[2020-02-24] MEDS ORDERED: Lactated Ringers 1,000 ML IV SCH (06:30)
[2020-02-24] MEDS ORDERED: Decadron 4 MG INJ ONE (08:20)
[2020-02-24] MEDS ORDERED: DIPRIVAN 200 MG/20 ML IV ONE (08:20)
[2020-02-24] MEDS ORDERED: Zofran 4 MG/2 ML VIAL ONE (08:20)
[2020-02-24] MEDS ORDERED: SUBLIMAZE 100 MCG/2 ML ONE (08:20)
[2020-02-24] MEDS ORDERED: Versed 2 MG/2 ML Injection ONE (08:20)
[2020-02-24] MEDS ORDERED: Lactated Ringers 1,000 ML IV ONE (09:07)
[2020-02-24 09:59] VITALS: BP 123/78; PULSE 59; O2SAT 97
--- NOTE | 2020-02-25 07:51 | OP ---
SURGERY DATE/TIME: 02/24/2020 0821 PREOPERATIVE DIAGNOSIS: Abnormal uterine bleeding. POSTOPERATIVE DIAGNOSIS: Abnormal uterine bleeding. PROCEDURE: Hysteroscopy, D&C with NovaSure ablation. SURGEON: Roni Dueñas D.O. DERMATOLOGY SALES REPRESENTATIVE: Tanner Montejo surgical supply assistant. ANESTHESIA: General. ESTIMATED BLOOD LOSS: Minimal. COMPLICATIONS: None. INDICATIONS: The risks, benefits, indications and alternatives of the procedure were reviewed with the patient prior to the procedure. The patient understood the risk of infection, bleeding, bowel injury, bladder injury, uterine perforation, pelvic infection, thromboembolic disorder associated with the surgery and desires to have this surgery as a possible means to alleviate her current medical condition. DESCRIPTION OF PROCEDURE AND FINDINGS: At this point the patient is taken to the operating room, given general sedation, placed in dorsal lithotomy position, prepped and draped in the usual sterile fashion. A weighted speculum is then placed in the patient's vagina and the anterior lip of the cervix was grasped with a single tooth tenaculum. Endocervical dilators were advanced through the endocervical canal as a means to dilate the cervix and from this point a 5 mm hysteroscope was then placed in through the endocervical canal where visualization of the uterine cavity appeared to be within normal limits with no gross abnormalities. From this point a curette was then placed into the fundus of the uterus and curettage was performed in all four quadrants of the uterus retrieving a mild to moderate amount of tissue. Hemostasis was obtained. The uterus measured approximately 8 cm in length. From this point the curette was removed and at this point the NovaSure was then placed with a length of 6 cm. It was engaged in the uterine cavity without complication and the machine was turned on for approximately 36 seconds. At the completion of the ablation the handle was disengaged and the NovaSure was removed from the uterine cavity without complication. From this point all instruments were removed from the patient's vaginal region. The patient was then taken out of dorsal lithotomy position, was then taken to the recovery room in stable condition. The width was measured at 3.2 during the procedure for the NovaSure. All instruments and laps were accounted for x2.
== END 2020-02-24 09:55 | disposition home or self-care (01) ==
LOC: SDC 06:26
PROVIDERS: ATTEND Obstetrics & Gynecology
DX: N93.9 Abnormal uterine and vaginal bleeding, unspecified (principal)
CPT/HCPCS: 84703; 88305; J0690; J1100; J2250; J2405; J2704; J3010

== ENCOUNTER 2022-07-31 06:04 | Day surgery (SDC) | payer BC ==
[2022-07-31] MEDS ORDERED: Lactated Ringers 1,000 ML IV SCH (07:00)
[2022-07-31] MEDS ORDERED: Versed 2 MG/2 ML Injection ONE (07:45)
[2022-07-31] MEDS ORDERED: DIPRIVAN 200 MG/20 ML IV ONE (07:45)
[2022-07-31] MEDS ORDERED: Xylocaine-Mpf 2% 5 Ml Vial ONE (07:45)
[2022-07-31 08:40] VITALS: PULSE 66; O2SAT 97
[2022-07-31 08:48] VITALS: BP 99/62
--- NOTE | 2022-07-31 10:04 | OP ---
SURGERY DATE/TIME: 07/31/2022 0750 PREOPERATIVE DIAGNOSIS: Epigastric pain. POSTOPERATIVE DIAGNOSES: 1) Mild gastritis. 2) Hiatal hernia. PROCEDURE: Esophagogastroduodenoscopy with cold forceps biopsy. SURGEON: Dr. Werner. ANESTHESIA: Medications were given by the anesthesia department. BRIEF HISTORY: The patient is a 47-year-old white female with persistent epigastric pain. She has been on proton pump inhibitor as well as H2 marimar. She reports she had her gallbladder evaluated and it was found to be normal. The patient was felt the need to have endoscopic evaluation. She was appraised of the risks of the procedure including the risk of perforation, phlebitis, untoward reaction to medication and vocal cord injury. The patient verbalized her understanding and desired to have the procedure performed. DESCRIPTION OF PROCEDURE: The patient was given the medications by the anesthesia department. She had continuous pulse oximetry, ECG monitoring and intermittent blood pressure monitoring during the examination. She was placed in the left lateral decubitus position. A bite block was placed and the flexible Olympus gastroscope was used to intubate the oropharynx. A view of the larynx was obtained and was normal. The scope was easily introduced in the esophagus which appeared to be normal to the gastroesophageal junction where there was appearance of hiatal hernia. The scope was passed in the stomach where normal gastric rugal folds were seen and these distended nicely with insufflation of air. The scope was passed along the greater curvature of the stomach to the antrum. The pylorus was encountered and intubated. The duodenum inspected and found to be normal. The scope is withdrawn towards the stomach. Again a retroflex view was obtained of the lesser curvature, fundus and cardia regions of the stomach and a hiatal hernia was more well appreciated in this view. The scope was then redirected towards the gastric antrum and biopsies were obtained to rule out the presence of Helicobacter pylori-type organisms. The scope was then removed from the patient who tolerated the procedure well and was sent back to outpatient recovery in good condition.
== END 2022-07-31 08:52 | disposition home or self-care (01) ==
LOC: SDC 06:04
PROVIDERS: ATTEND Family Medicine
DX: K29.70 Gastritis, unspecified, without bleeding (principal); K44.9 Diaphragmatic hernia without obstruction or gangrene; R10.13 Epigastric pain
CPT/HCPCS: 93005; J2250; J2704

== ENCOUNTER 2023-03-28 19:17 | Emergency (ER) | payer BC ==
[2023-03-28 20:12] VITALS: RESP 18; TEMP 96.5; O2SAT 98
[2023-03-28 20:32] VITALS: BP 100/75; PULSE 75
--- NOTE | 2023-03-28 20:38 | ERPHSYRPT ---
- History of Present Illness Time Seen by Provider: 03/28/23 19:59 Source: patient Exam Limitations: no limitations Patient Subjective Stated Complaint: pt states her heart rate has been high Triage Nursing Assessment: pt came into the er via ambulance; pt transferred selft to bed; c/o tachycardia; heart rate 68 bpm on arrival; clear apical heart tone; no edema present; ETOH; active bowel sounds in all quads; clear lung sounds in lobes; no respiratory distress present; skin PDW; vital wnl; pt states 7/10 to head Physician History: 39-year-old female presents to our ED via EMS for evaluation of tachycardia and syncope. Patient states she was at a local bar with her significant other. Patient had "a couple beers" when symptoms occurred. Patient states she has a history of pulmonary hypertension. 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 Patient states that these episodes happen frequently. Patient states her heart starts to race she becomes lightheaded and passes out. Patient's primary care provider is aware of it. Patient currently has an appointment with a after school coordinator next week. Patient denies associated chest pain. No shortness of breath. No nausea vomiting or diaphoresis. Patient currently asymptomatic. Patient states that whenever this happens she ends up in the emergency department. A full workup was done and they find nothing. She is subsequently discharged. Patient states that she is currently asymptomatic and prefers to be discharged. She states she will follow-up with her after school coordinator next week. No chest pain or shortness of breath. No nausea vomiting or diaphoresis. Vitals are stable. Patient is no longer tachycardic. at bedside. They voiced no other complaints or concerns at this time. Portions of this note were created with voice recognition technology. There may be grammatical, spelling, punctuation or sound alike errors Timing/Duration: today Severity: moderate Modifying Factors: Improves With: nothing Associated Symptoms: syncope, No abdominal pain, No shortness of breath, No weakness Allergies/Adverse Reactions: No Known Drug Allergies Allergy (Verified 03/28/23 19:49) Home Medications: Albuterol 2.5 mg/0.5 ml [PROVENTIL Solution 2.5 MG/0.5 ML] 1 neb IH QIDPRN PRN 05/28/17 [History] Famotidine 20 mg [Pepcid 20 MG] 40 mg PO DAILY 07/18/22 [History] Fluticasone/Umeclidin/Vilanter [Trelegy Ellipta 100-62.5-25] 1 puff IH UD 07/18/22 [History] Montelukast Sodium 10 mg [Singulair 10 MG] 10 mg PO DAILY 07/18/22 [History] Omeprazole 40 mg PO DAILY 07/18/22 [History] Bupropion HCl Xl 150 mg [Wellbutrin XL 150 MG] 150 mg PO DAILY 03/28/23 [History] Fluticasone/Umeclidin/Vilanter [Trelegy Ellipta 100-62.5-25] 1 puff IH DAILY 03/28/23 [History] Hx Tetanus, Diphtheria Vaccination/Date Given: Yes (UP TO DATE) Hx Influenza Vaccination/Date Given: No Hx Pneumococcal Vaccination/Date Given: No Travel Risk - International Travel Have you traveled outside of the country in past 3 weeks: No - Coronavirus Screening Are you exhibiting any of the following symptoms?: No Close contact with a COVID-19 positive Pt in past 14-21 Days: No - Vaccine Status Have you recieved a Covid-19 vaccination: Yes 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 - Vaccination Dates Date of 2cond Vaccination (if applicable): 2020 - Review of Systems Constitutional: No Symptoms, No Fever, No Chills Eyes: No Symptoms Ears, Nose, & Throat: No Symptoms Respiratory: No Symptoms, No Cough, No Dyspnea Cardiac: No Symptoms, No Chest Pain, No Edema, No Syncope Abdominal/Gastrointestinal: No Symptoms, No Abdominal Pain, No Nausea, No Vomiting, No Diarrhea Genitourinary Symptoms: No Symptoms, No Dysuria Musculoskeletal: No Symptoms, No Back Pain, No Neck Pain Skin: No Symptoms, No Rash Neurological: No Symptoms, No Dizziness, No Focal Weakness, No Sensory Changes Psychological: No Symptoms Endocrine: No Symptoms Hematologic/Lymphatic: No Symptoms Immunological/Allergic: No Symptoms All Other Systems: Reviewed and Negative - Past Medical History Pertinent Past Medical History: Yes Neurological History: No Pertinent History ENT History: No Pertinent History Cardiac History: No Pertinent History Respiratory History: Bronchitis, COPD, Emphysema, Other Endocrine Medical History: No Pertinent History Musculoskeletal History: No Pertinent History GI Medical History: No Pertinent History History: No Pertinent History Psycho-Social History: Anxiety, Depression Female Reproductive Disorders: Abnormal Uterine Bleeding Other Medical History: pulmonary hypertenson - Past Surgical History Past Surgical History: Yes Neuro Surgical History: No Pertinent History Cardiac: No Pertinent History Respiratory: No Pertinent History Gastrointestinal: No Pertinent History Genitourinary: No Pertinent History Musculoskeletal: No Pertinent History Female Surgical History: Tubal Ligation, Other Other Surgical History: LYMPH NODE BIOPSY, lumps removed from left breast. GANGLION CYST REMOVAL, uterine ablation 2020, lap ovarian cyst removal - Social History Smoking Status: Current every day smoker How long have you smoked: 25 Exposure to second hand smoke: Yes Drug Use: marijuana Patient Lives Alone: No - Female History Hx Now: No - Nursing Vital Signs Nursing Vital Signs: Initial Vital Signs Temperature 96.5 F 03/28/23 19:52 Pulse Rate 67 03/28/23 19:52 Respiratory Rate 18 03/28/23 19:52 Blood Pressure 91/62 03/28/23 19:52 O2 Sat by Pulse Oximetry 98 03/28/23 19:52 Pain Scale Pain Intensity 7 - Physical Exam General Appearance: no apparent distress, alert Eye Exam: PERRL/EOMI, eyes nml inspection Ears, Nose, Throat Exam: normal ENT inspection, pharynx normal, moist mucous membranes Neck Exam: normal inspection, non-tender, supple, full range of motion Respiratory Exam: normal breath sounds, lungs clear, airway intact, No respiratory distress Cardiovascular Exam: regular rate/rhythm, normal heart sounds, normal peripheral pulses Gastrointestinal/Abdomen Exam: soft, normal bowel sounds, No tenderness, No mass Back Exam: normal inspection, normal range of motion, No CVA tenderness, No vertebral tenderness Extremity Exam: normal inspection, normal range of motion, pelvis stable Neurologic Exam: alert, oriented x 3, cooperative, normal mood/affect, sensation nml, No motor deficits Skin Exam: normal color, warm, dry, No rash Lymphatic Exam: No adenopathy SpO2 Interpretation: normal SpO2: 98 O2 Delivery: Room Air - Course Nursing assessment & vital signs reviewed: Yes EKG Interpreted by Me: RATE (67), Sinus Rhythm, NORMAL AXIS, NORMAL INTERVALS Ordered Tests: Active Orders 24 hr Category Date Time Status IV Insertion STAT Care 03/28/23 20:16 Active - Progress Progress: improved Progress Note: 39-year-old female presents to our ED via EMS. Patient had an episode of tachycardia and syncope while out having dinner. Patient states she had a "couple of beers". Patient reports that these episodes of tachycardia and syncope are not new. Patient's primary care doctor is aware of them. Patient has been worked up several times in the emergency department for this problem. Patient states that her workups have been negative. Patient has a referral to see a after school coordinator next week. Patient is currently asymptomatic. Patient feels like a workup at this point is not necessary. Patient states that she prefers to leave AMA as she feels fine and her vitals are at her baseline. Patient is of sound mind. Patient is appropriate to make informed and independent medical decisions. Patient understands that leaving AGAINST MEDICAL ADVICE can result in delayed diagnosis, increased risk of morbidity, mortality, short and long-term disability including . In spite of these risks, patient has decided to leave AGAINST MEDICAL ADVICE. Patient understands that she may return to our ED at any point if he or she reconsiders. Patient agrees to follow-up with her primary care doctor within 48 hours for reevaluation. Pat ient voices no other complaints or concerns at this time. We will release patient AGAINST MEDICAL ADVICE per their request. Portions of this note were created with voice recognition technology. There may be grammatical, spelling, punctuation or sound alike errors Complexity problem addressed is moderate acute complicated No critical care time Complex of data reviewed and analyzed is moderate. Dr. Garcia independently reviewed EKG. Patient left AMA. No specialized test ordered or reviewed otherwise Risk of complication and or risk of morbidity/mortality of patient management is low Vital stable. Time spent to discharge AMA is approximately 20 minutes. Plan of care independently decided by patient and significant other. Patient decided to leave AGAINST MEDICAL ADVICE. No social determinants of health present impede follow-up. Portions of this note were created with voice recognition technology. There may be grammatical, spelling, punctuation or sound alike errors 03/28/23 20:41 Counseled pt/family regarding: diagnosis, need for follow-up - Departure Departure Disposition: AMA Clinical Impression: Tachycardia, Syncope Condition: Stable Critical Care Time: No Referrals: OPHELIA MATOS NP [Primary Care Provider] - Follow up/PCP as directed Additional Instructions: Discharge/Care Plan ALICE PINEDA RAJ was seen on 03/28/23 in the Emergency Room. The patient was counseled regarding Diagnosis,Lab results, Imaging studies, need for follow up and when to return to the Emergency Room. Prescriptions given: Discharge Note I have spoken with the patient and/or caregivers. I have explained the patient's condition, diagnosis and treatment plan based on the information available to me at this time. I have answered the patient's and/or caregiver's questions and addressed any concerns. The patient and/or caregivers have as good understanding of the patient's diagnosis, condition and treatment plan as can be expected at this point. The vital signs have been stable. The patient's condition is stable and appropriate for discharge from the emergency department. The patient will pursue further outpatient evaluation with the primary care physician or other designated or consulting physician as outlined in the discharge instructions. The patient and/or caregivers are agreeable to this plan of care and follow-up instructions have been explained in detail. The patient and/or caregivers have received these instruction. The patient/and or caregivers are aware that any significant change in condition or worsening of symptoms should prompt an immediate return to this or the closest emergency department or call 911.
== END 2023-03-28 20:37 | disposition left against medical advice (07) ==
LOC: ED 19:17
DX: R00.0 Tachycardia, unspecified (principal); R55 Syncope and collapse; Z79.899 Other long term (current) drug therapy; Z72.0 Tobacco use
CPT/HCPCS: 36000; 99283